=== PATIENT | female | born 1935 | race Caucasian/White ===

== ENCOUNTER 2016-11-05 06:53 | Emergency (ER) | payer MEDICARE, BC, OTHER ==
[~2016-11-05] VITALS: Ht 154.9 cm; Wt 63.5 kg
[~2016-11-05 06:53] MED LIST: ASPIR-LOW81 MG PO; ATENOLOL25 MG PO; COZAAR50 MG PO; NITROSTAT0.4 MG SL; NORCO 5-325 TA1 EACH PO
[2016-11-05] MEDS ORDERED: ATORVASTATIN CA10 MG PO (07:16)
--- NOTE | 2016-11-05 11:08 | EKG ---
[facility] [address] [facility] [place], [place] [address] Signed Normal sinus rhythm Normal ECG When compared with ECG of 05-MAY-2016 07:10, No significant change was found Confirmed by ROLDAN MCCAULEY MD ([id number]) on 11/05/2016 11:08:18 AM Electronically Signed By: ROLDAN MCCAULEY MD 11/05/16 1108 PATIENT NAME: DMITRY SAM Electrocardiogram DATE OF : 35 PHYSICIAN: ROLDAN MCCAULEY MD REPORT #: [id number] REPORT IS CONFIDENTIAL AND NOT TO BE RELEASED WITHOUT AUTHORIZATION
== END 2016-11-05 09:00 | disposition home or self-care (01) ==
LOC: ED 06:53
DX: R07.9 Chest pain, unspecified (principal); R51 Headache; Z79.899 Other long term (current) drug therapy; Z79.82 Long term (current) use of aspirin
CPT/HCPCS: 70450; 71010; 80053; 84484; 85025; 93005; 93010; 96374; 99284; J2405

== ENCOUNTER 2019-11-09 17:52 | Emergency (ER) | payer MEDICARE, BC, OTHER ==
[~2019-11-09] VITALS: Ht 154.9 cm; Wt 63.5 kg
--- OUTSIDE RECORDS SUMMARY | ~2019-11-09 | XMS | Encounter Summary ---
Demographics + + + | Address | [address] | | | [place] [address] | + + + | Home Phone | | + + + | Preferred Language | Unknown | + + + | Marital Status | | + + + | Lutheran Affiliation | 1073 | + + + | Race | White | + + + | Ethnic Group | Not or | + + + Author + + + | Author | [facility] | | | and [place] | + + + | Organization | [facility] | | | and [place] | + + + | Address | Unknown | + + + | Phone | Unavailable | + + + Support + + + + + | Name | Relationship | Address | Phone | + + + + + | Kristyndamaris Noble | ECON | [address] | | | | | [place], [place] | | | | | [address] | | + + + + + | Georgie Noble | ECON | Unknown | | + + + + + Care Team Providers + +------+ + | Care Financial Engineer Name | Role | Phone | + +------+ + | Symone Oscar MD | PCP | | + +------+ + Encounter Details +--------+ + + + + | Date | Type | Department | Care Team | Description | +--------+ + + + + | 11/24/ | Orders Only | [facility] | Arvin Bacon | | | 2019 | | NOSE AND THROAT [address] | MD Julia [address] | | | | | [address] | [address] | | | | | [place], [place] | [place] [address] | | | | | [address] | [phone] | | | | | [phone] | | | +--------+ + + + + Social History + +-------+ +--------+------+ | Tobacco Use | Types | Packs/Day | Years | Date | | | | | Used | | + +-------+ +--------+------+ | Never Smoker | | | | | + +-------+ +--------+------+ + +---+---+---+ | Smokeless Tobacco: | | | | | Never Used | | | | + +---+---+---+ + + + | Sex Assigned at | Date Recorded | | | | + + + | Not on file | | + + + documented as of this encounter Plan of Treatment Not on filedocumented as of this encounter Procedures + +--------+ + + + | Procedure Name | Priori | Date/Time | Associated Diagnosis | Comments | | | ty | | | | + +--------+ + + + | CULTURE, NOSE, AND | Routin | 11/24/2018 | | Results for this | | SENSITIVITY | e | 4:41 PM | | procedure are in the | | | | PDT | | results section. | + +--------+ + + + documented in this encounter Results Culture, Nose, and Sensitivity (11/24/2018 4:41 PM PDT) + + + + + + | Component | Value | Ref Range | Performed | Pathologist | | | | | At | Signature | + + + + + + | Special | RIGHT NARES | | REFERENCE | | | Requests | | | LAB | | | | | | [facility] | | | | | | LABORATORY | | + + + + + + | RESULT | 1+NORMAL UPPER | | REFERENCE | | | | RESPIRATORY [facility] | | LAB | | | | | | [facility] | | | | | | LABORATORY | | + + + + + + | RESULT | Testing performed at | | REFERENCE | | | | TC;[address] | | LAB | | | | Blvd;[place], [place] | | [facility] | | | | [id number]: Testing | | LABORATORY | | | | performed at [facility], [address] | | | | | | [address], | | | | | | [place] [address] | | | | + + + + + + + + | Specimen | + + | | + + + + + + + | Performing | Address | City/State/Zipcode | Phone Number | | Organization | | | | + + + + + | REFERENCE LAB | [address] | [place] | [phone] | | [facility] | [address] | [address] | | | LABORATORY | | | | + + + + + | REFERENCE LAB | [address] | [place] | | | [facility] | [place] | [address] | | | LABORATORY | | | | + + + + + documented in this encounter Visit Diagnoses Not on filedocumented in this encounter"
--- OUTSIDE RECORDS SUMMARY | ~2019-11-09 | XMS | Encounter Summary ---
Demographics + + + | Address | [address] | | | [place] [address] | + + + | Home Phone | | + + + | Preferred Language | Unknown | + + + | Marital Status | | + + + | Temple Affiliation | 1073 | + + + | Race | White | + + + | Ethnic Group | Not or | + + + Author + + + | Author | [facility] | | | and [place] | + + + | Organization | [facility] | | | and [place] | + + + | Address | Unknown | + + + | Phone | Unavailable | + + + Support + + + + + | Name | Relationship | Address | Phone | + + + + + | Kristyndamaris Noble | ECON | [address] | | | | | [place], [place] | | | | | [address] | | + + + + + | Georgie Noble | ECON | Unknown | | + + + + + Care Team Providers + +------+ + | Care Vat Skimmer Name | Role | Phone | + +------+ + | Symone Oscar MD | PCP | | + +------+ + Encounter Details +--------+ + + + + | Date | Type | Department | Care Team | Description | +--------+ + + + + | 06/02/ | Orders Only | [facility] | Ac Rahman MD | | | 2016 | | CARDIOLOGY [place] | [address] | | | | | [address] | [place] [address] | | | | | [address] | [phone] | | | | | [place], [place] | | | | | | [address] | | | | | | [phone] | | | +--------+ + + + + Social History + +-------+ +--------+------+ | Tobacco Use | Types | Packs/Day | Years | Date | | | | | Used | | + +-------+ +--------+------+ | Never Assessed | | | | | + +-------+ +--------+------+ + + + | Sex Assigned at [...] | + +--------+ + + + | NM MYOCARDIAL | Routin | 06/03/2015 | | Results for this | | PERFUSION MULT SPECT | e | 4:43 PM | | procedure are in the | | | | PDT | | results section. | + +--------+ + + + documented in this encounter Results NM Myocardial Perfusion Mult SPECT (06/03/2015 4:43 PM PDT) + + | Specimen | + + | | + + + + + | Impressions | Performed At | + + + | This is an abnormal stress test based on the ST depression that | | | became more prominent during recovery phase after Lexiscan infusion, | | | however perfusion appears to be normal with no transient ischemic | | | dilatation. Ac Rahman MD, [facility] | | + + + + + + | Narrative | Performed At | + + + | [facility] Nuclear Treadmill Stress Test With | | | Lexiscan Intervention TEST DATE: 06/03/2015 INDICATION FOR | | | TEST: 80 year old female being evaluated for coronary artery disease. | | | RISK FACTORS: hypertension, hyperlipidemia, family history, | | | stress, post menopause PROCEDURE: Gino protocol. Rest dose- 10.1 | | | mCi of Tc-99m Myoview given intravenously. Stress dose- At 02:39 | | | minutes 30.9 mCi of Tc-99m Myoview given intravenously. Injected 0.4 | | | mg IV of Lexiscan over 10 seconds at 01:50 minutes to complete stress. | | | Effective Dose Equivalent: 14.0 mSv. The predicted exercise time | | | was 02:30 minutes. Patient's Predicted Maximum HR: 140. Patient's | | | Predicted 85% Max HR: 119. REST DATA: HR: 47 bpm BP: 150 / 77. | | | Rest EKG shows sinus bradycardia with nonspecific ST abnormalities. | | | STRESS DATA: Exercise Time: 01:42 minutes, HR achieved: 116 bpm, Max | | | BP: 150 / 77. RPP: [id number]. METS: 4.60. Symptoms shortness of breath, | | | headache The test was terminated due to Lexiscan intervention for | | | shortness of breath, Walked to 82 % MPHR. Stress EKG showed 1 mm | | | planar ST depression in a diffuse pattern that became more prominent | | | during recovery phase before it normalized. GATED IMAGES: Rest | | | EDV: 88 mL Rest ESV: 24 mL Stress EDV: 85 mL Stress ESV: 18 mL. | | | EJECTION FRACTION: REST EF: 73% STRESS EF: 79%. IMAGIN. The | | | quality of the study is adequate. 2. SPECT images showed no | | | significant perfusion defect both at rest and during exercise. (SSS: | | | 0 SRS: 1 SDS: 0 TID: 0.85). 3. Gated SPECT images showed normal | | | wall motions. 4. Gated SPECT images showed normal wall thickening. | | | 5. The RV function appears normal. 6. The Stoner Treadmill Score | | | is -3. 7. Comparison of previous nuclear stress test on 08/04/2006 | | | showed similar EKG changes. | | + + + + + | Procedure Note | + + | Francisco Javier, Rad Conversion - 10/20/2018 8:44 PM [facility] | | Treadmill Stress Test With Lexiscan Intervention TEST DATE: 06/03/2015 INDICATION FOR | | TEST: 80 year old female being evaluated for coronary artery disease. RISK FACTORS: | | hypertension, hyperlipidemia, family history, stress, post menopause PROCEDURE: Gino | | protocol. Rest dose- 10.1 mCi of Tc-99m Myoview given intravenously. Stress dose- At | | 02:39 minutes 30.9 mCi of Tc-99m Myoview given intravenously. Injected 0.4 mg IV of | | Lexiscan over 10 seconds at 01:50 minutes to complete stress. Effective Dose | | Equivalent: 14.0 mSv. The predicted exercise time was 02:30 minutes. Patient's Predicted | | Maximum HR: 140. Patient's Predicted 85% Max HR: 119. REST DATA: HR: 47 bpm BP: 150 / | | 77. Rest EKG shows sinus bradycardia with nonspecific ST abnormalities. STRESS DATA: | | Exercise Time: 01:42 minutes, HR achieved: 116 bpm, Max BP: 150 / 77. RPP: 51709. METS: | | 4.60. Symptoms shortness of breath, headache The test was terminated due to Lexiscan | | intervention for shortness of breath, Walked to 82 % MPHR. Stress EKG showed 1 mm | | planar ST depression in a diffuse pattern that became more prominent during recovery | | phase before it normalized. GATED IMAGES: Rest EDV: 88 mL Rest ESV: 24 mL Stress EDV: | | 85 mL Stress ESV: 18 mL. EJECTION FRACTION: REST EF: 73% STRESS EF: 79%. IMAGIN. The | | quality of the study is adequate.2. SPECT images showed no significant perfusion | | defect both at rest and during exercise. (SSS: 0 SRS: 1 SDS: 0 TID: 0.85).3. Gated | | SPECT images showed normal wall motions.4. Gated SPECT images showed normal wall | | thickening.5. The RV function appears normal.6. The Stoner Treadmill Score is -3.7. | | Comparison of previous nuclear stress test on 08/04/2006 showed similar EKG changes. | | IMPRESSION: This is an abnormal stress test based on the ST depression that became more | | prominent during recovery phase after Lexiscan infusion, however perfusion appears to be | | normal with no transient ischemic dilatation. Ac Rahman MD, [facility] Electronically | | signed by Ac Rahman MD on 06/05/2015 5:55 PM | |2. SPECT images showed no significant perfusion defect both at rest and during exercise. (SSS: 0 SRS: 1 SDS: 0 TID: 0.85). | |3. Gated SPECT images showed normal wall motions. | |4. Gated SPECT images showed normal wall thickening. | |5. The RV function appears normal. | |6. The Stoner Treadmill Score is -3. | |7. Comparison of previous nuclear stress test on 08/04/2006 showed similar EKG changes. | | | | | |IMPRESSION: | |This is an abnormal stress test based on the ST depression that became more prominent durin g recovery phase after Lexiscan infusion, however perfusion appears to be normal with no tra nsient ischemic dilatation. | | | | | |Ac Rahman MD, FACC | | | | | + + documented in this encounter Visit Diagnoses Not on filedocumented in this encounter"
--- OUTSIDE RECORDS SUMMARY | ~2019-11-09 | XMS | Encounter Summary ---
Demographics + + + | Address | [address] | | | [place] [address] | + + + | Home Phone | | + + + | Preferred Language | Unknown | + + + | Marital Status | | + + + | Moravian Affiliation | 1073 | + + + | Race | White | + + + | Ethnic Group | Not or | + + + Author + + + | Author | [facility] | | | and [place] | + + + | Organization | [facility] | | | and [place] | + + + | Address | Unknown | + + + | Phone | Unavailable | + + + Support + + + + + | Name | Relationship | Address | Phone | + + + + + | Kristyndamaris Noble | ECON | [address] | | | | | [place], [place] | | | | | [address] | | + + + + + | Georgie Noble | ECON | Unknown | | + + + + + Care Team Providers + +------+ + | Care Livestock Producer Name | Role | Phone | + +------+ + PCP | Unavailable | + +------+ + Encounter Details +--------+ + + + + | Date | Type | Department | Care Team | Description | +--------+ + + + + | 04/01/ | Hospital | [facility] | Conversion | CHEST PAIN NOS | | 2005 - | Encounter | [facility] | Transaction, | | | | | CLINICAL DECISION | Provider Unknown | | | 04/03/ | | [address] | | | | 2005 | | [place], [place] | (Fax) | | | | | [address] | | | | | | [phone] | | | +--------+ + + + [...] Not on filedocumented as of this encounter Visit Diagnoses + + | Diagnosis | + + | Chest pain, unspecified | + + documented in this encounter"
--- OUTSIDE RECORDS SUMMARY | ~2019-11-09 | XMS | Encounter Summary ---
Demographics + + + | Address | [address] | | | [place] [address] | + + + | Home Phone | | + + + | Preferred Language | Unknown | + + + | Marital Status | | + + + | Sikhism Affiliation | 1073 | + + + | Race | White | + + + | Ethnic Group | Not or | + + + Author + + + | Author | [facility] | | | and [place] | + + + | Organization | [facility] | | | and [place] | + + + | Address | Unknown | + + + | Phone | Unavailable | + + + Support + + + + + | Name | Relationship | Address | Phone | + + + + + | Kristyndamaris Noble | ECON | [address] | | | | | [place], [place] | | | | | [address] | | + + + + + | Georgie Noble | ECON | Unknown | | + + + + + Care Team Providers + +------+ + | Care End User Support Specialist Name | Role | Phone | + +------+ + PCP | Unavailable | + +------+ + Encounter Details +--------+ + + + + | Date | Type | Department | Care Team | Description | +--------+ + + + + | 07/14/ | Emergency | [facility] | Shea Christopher, | Unspecified Chest | | 2006 | | MEDICAL [facility]ENTER | [address] | Pain | | | | EMERGENCY CENTER | [place] [address] | | | | | [address] | [phone] | | | | | [place], [place] | | | | | | [address] | | | | | | [phone] | | | +--------+ + + + [...]
--- OUTSIDE RECORDS SUMMARY | ~2019-11-09 | XMS | Encounter Summary ---
Demographics + + + | Address | [address] | | | [place] [address] | + + + | Home Phone | | + + + | Preferred Language | Unknown | + + + | Marital Status | | + + + | Islam Affiliation | 1073 | + + + | Race | White | + + + | Ethnic Group | Not or | + + + Author + + + | Author | [facility] | | | and [place] | + + + | Organization | [facility] | | | and [place] | + + + | Address | Unknown | + + + | Phone | Unavailable | + + + Support + + + + + | Name | Relationship | Address | Phone | + + + + + | Susi Real | ECON | [address] | | | | | [place], [place] | | | | | [address] | | + + + + + | Georgie Noble | ECON | Unknown | | + + + + + Care Team Providers + +------+ + | Care Global Security Architect Name | Role | Phone | + +------+ + | Symone Oscar MD | PCP | | + +------+ + Reason for Visit +--------+ + | Reason | Comments | +--------+ + | 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 | +--------+ + Encounter Details +--------+---------+ + + + | Date | Type | Department | Care Team | Description | +--------+---------+ + + + | 11/24/ | Office | [facility] | Niecy Bacon | Chronic maxillary | | 2019 | Visit | NOSE AND THROAT [address] | MD Julia [address] | sinusitis (Primary | | | | [address] | [address] | Dx); Allergic | | | | [place], [place] | [place] [address] | rhinitis, | | | | [address] | [phone] | unspecified | | | | [phone] | | seasonality, | | | | | | unspecified trigger; | | | | | | History of nasal | | | | | | polyposis | +--------+---------+ + + + Social History + +-------+ [...] + + documented as of this encounter Last Filed Vital Signs + +---------+ + + | Vital Sign | Reading | Time Taken | Comments | + +---------+ + + | Blood Pressure | - | - | | + +---------+ + + | Pulse | 55 | 11/24/2018 1:45 PM | | | | | PDT | | + +---------+ + + | Temperature | - | - | | + +---------+ + + | Respiratory Rate | - | - | | + +---------+ + + | Oxygen Saturation | 97% | 11/24/2018 1:45 PM | | | | | PDT | | + +---------+ + + | Inhaled Oxygen | - | - | | | Concentration | | | | + +---------+ + + | Weight | - | - | | + +---------+ + + | Height | - | - | | + +---------+ + + | Body Mass Index | - | - | | + +---------+ + + documented in this encounter Patient Instructions Patient Instructions Anca Hopper, Pulp Mixer - 11/24/2018 1:45 PM PDTThis medicat ion is over the counter: This medication is over the counter: documented in this encounter Progress Notes Niecy Bacon MD - 11/24/2018 1:45 PM PDT Subjective: Constance is a 83 y.o. female who I was asked to see in consultation for evaluation of chron ic sinusitis and nasal poylps. She reports chronic sinus problems for the past 7 years. Her symptoms include right-sided nasal congestion, postnasal drainage, coughing up sputum. The re has not been a history of clear rhinorrhea, epistaxis. There has not been a history of ch ronic otitis media or pharyngotonsillitis. Prior antibiotics have including Amoxicillin. She reports 3 or 4 courses of oral antibiotics in the past year. Other medications have include d Flonase intranasal spray twice daily, which does help. She is not taking an oral antihisti mine. She reports she does have seasonal allergies. She has not had allergy testing done. S he reports a constant "hissing" sound which comes with coughing up sputum. Patient states frenanda soliz had left-sided nasal polyps [place] [address] Escalante in [place], which improved h er symptoms at that time. She also reports right-sided nasal polyps, which she reports were not extensive enough to remove. She states she has an implant in the left ear, by Dr. Epi weston approximately 20 years ago. Patient's medications, allergies, past medical, surgical, social and family histories were obtained and reviewed as appropriate. History: Past Medical History: Diagnosis Date Abnormal stress test mildly however with normal perfusion pattern CAD (coronary artery disease) stenting of left anterior descending artery HTN (hypertension) Hyperlipidemia Past Surgical History: Procedure Laterality Date CARDIAC CATHERIZATION CORONARY ANGIOPLASTY WITH STENT PLACEMENT TUBAL LIGATION Bilateral 1958 Family History Problem Relation Age of Onset Heart attack Father Hx of CHF Other (see comment) Mother CVA Social History Socioeconomic History Marital status: Spouse name: Not on file Number of children: Not on file Years of education: trade ada. Highest education level: Not on file Tobacco Use Smoking status: Never Smoker Smokeless tobacco: Never Used Allergies: Allergies Allergen Reactions Yann Inhibitors Cough Enalapril Cough Review of Systems Constitutional: negative Respiratory: positive for sputum, stridor and wheezing Cardiovascular: negative Gastrointestinal: negative Hematologic/lymphatic: negative Musculoskeletal:positive for arthralgias, muscle weakness and stiff joints Neurological: positive for gait problems Behavioral/Psych: negative Endocrine: positive for diabetic symptoms including blurry vision Allergic/Immunologic: negative Objective: Pulse 55 | SpO2 97% General: healthy, alert, appears stated age, not in distress Head and Face: facial movement was normal and symmetrical, nontender External Ears: normal pinnae shape and position Ext. Aud. Canal: Right:patent Left: patent Tympanic Mem: Right: normal landmarks and mobility Left: normal landmarks and mobility Nose: Nares normal. Septum midline. Mucosa normal. No drainage or sinus tenderness. Oropharynx: lips, dentition and gingiva within normal for age Tonsils: absent bilaterally Post. Pharynx: normal mucosa Neck: no asymmetry, masses, or scars, supple without significant adenopathy, trachea midl ine Thyroid: Normal Heart: regular rate and rhythm Lungs: Non-labored breathing Psych/Neuro: oriented, normal mood, grossly non-focal NASAL ENDOSCOPY Pre-procedure diagnosis: Nasal polyps, chronic sinusitis Post-procedure diagnosis: Same Procedure: Diagnostic nasal endoscopy. Under a separate identifiable procedure, diagnostic nasal endoscopy was performed. Verbal consent obtained. The risks, benefits, alternatives, and complications associated with the procedure were discussed with the patient. Topical 4% lidocaine with Kendell-Synephrine was raul lied to the nasal cavities. After the medication took effect, a 0 endoscope was introduce d into the left nasal cavity. A three pass technique was used to examine the nasal cavity. The nasopharynx and nasal cavity were free of mass, polyp, or lesions. The left middle meatu s was free of purulent debris or polyps. Scope was removed. The right nasal cavity was exa mined in the exact same fashion. There was no evidence of mass, polyp, or lesion. The right middle meatus showed areas of mucoid to mucopurulent drainage. A culture was performed of this. No polyps were identified.. The endoscope was removed. Patient tolerated the proced ure well. } Assessment: 1. Chronic maxillary sinusitis Culture, Nose, and Sensitivity 2. Allergic rhinitis, unspecified seasonality, unspecified trigger 3. History of nasal polyposis . Plan: 1. I have reviewed the physical examination findings including the imaging results with th e patient. There is no evidence of polyps or masses today. She does appear to have thick muc ous to mucopurulent drainage on the right side today. Culture of the right sinus obtained. I recommend she continue using Flonase twice daily. I recommend she add saline rinses and add ing Mucinex daily. We will call her with the culture results. 2. The risks and benefits of my recommendations, as well as other treatment options were di scussed with the patient today. 3. Return for follow-up after culture results. Anca Harper CMA, am personally taking down the note in the presence of Nga Shin. NIECY BACON MD, personally performed the services described in this documentation, as scribed by Anca Hopper MA in my presence, and it is accurate. documented in this encounter Plan of Treatment + + +--------+ + + | Name | Type | Priori | Associated Diagnoses | Order Schedule | | | | ty | | | + + +--------+ + + | Culture, Nose, and | Microbiolog | Routin | Chronic maxillary | Ordered: 11/24/2018 | | Sensitivity | y | e | sinusitis | | + + +--------+ + + documented as of this encounter Visit Diagnoses + + | Diagnosis | + + | Chronic maxillary sinusitis - Primary | + + | Allergic rhinitis, unspecified seasonality, unspecified trigger | + + | History of nasal polyposis | + + documented in this encounter
--- OUTSIDE RECORDS SUMMARY | ~2019-11-09 | XMS | Encounter Summary ---
Demographics + + + | Address | [address] | | | [place] [address] | + + + | Home Phone | | + + + | Preferred Language | Unknown | + + + | Marital Status | | + + + | Anabaptist Affiliation | 1073 | + + + | Race | White | + + + | Ethnic Group | Not or | + + + Author + + + | Author | [facility] | | | and [place] | + + + | Organization | [facility] | | | and [place] | + + + | Address | Unknown | + + + | Phone | Unavailable | + + + Support + + + + + | Name | Relationship | Address | Phone | + + + + + | Kristyndamaris Noble | ECON | [address] | | | | | [place], [place] | | | | | [address] | | + + + + + | Georgie Noble | ECON | Unknown | | + + + + + Care Team Providers + +------+ + | Care Welder Experimental Name | Role | Phone | + +------+ + | Symone Oscar MD | PCP | | + +------+ + Encounter Details +--------+ + + + + | Date | Type | Department | Care Team | Description | +--------+ + + + + | 12/14/ | Orders Only | [facility] | Conversion | | | 2013 | | CONVERSION DEP 888 | Transaction, | | | | | [facility] | Provider Unknown | | | | | [place] | [phone] | | | | | [address] | | | | | | [phone] | | | +--------+ + + + [...] filedocumented as of this encounter Visit Diagnoses Not on filedocumented in this encounter"
--- OUTSIDE RECORDS SUMMARY | ~2019-11-09 | XMS | Encounter Summary ---
Demographics + + + | Address | [address] | | | [place] [address] | + + + | Home Phone | | + + + | Preferred Language | Unknown | + + + | Marital Status | | + + + | Episcopal Affiliation | 1073 | + + + | Race | White | + + + | Ethnic Group | Not or | + + + Author + + + | Author | [facility] | | | and [place] | + + + | Organization | [facility] | | | and [place] | + + + | Address | Unknown | + + + | Phone | Unavailable | + + + Support + + + + + | Name | Relationship | Address | Phone | + + + + + | Kristyndamaris Noble | ECON | [address] | | | | | [place], [place] | | | | | [address] | | + + + + + | Georgie Noble | ECON | Unknown | | + + + + + Care Team Providers + +------+ + | Care Direct Marketing Coordinator Name | Role | Phone | + +------+ + | Symone Oscar MD | PCP | | + +------+ + Encounter Details +--------+ + + + + | Date | Type | Department | Care Team | Description | +--------+ + + + + | 08/25/ | Orders Only | [facility] | Conversion | | | 2015 | | CONVERSION DEP 888 | Transaction, | | | | | [facility] | Provider Unknown | | | | | [place] | [phone] | | | | | [address] | | | | | | [phone] | | | +--------+ + + + [...]
--- OUTSIDE RECORDS SUMMARY | ~2019-11-09 | XMS | Encounter Summary ---
Demographics + + + | Address | [address] | | | [place] [address] | + + + | Home Phone | | + + + | Preferred Language | Unknown | + + + | Marital Status | | + + + | Congregation Affiliation | 1073 | + + + | Race | White | + + + | Ethnic Group | Not or | + + + Author + + + | Author | [facility] | | | and [place] | + + + | Organization | [facility] | | | and [place] | + + + | Address | Unknown | + + + | Phone | Unavailable | + + + Support + + + + + | Name | Relationship | Address | Phone | + + + + + | Susi Paweljairohanna | ECON | [address] | | | | | [place], [place] | | | | | [address] | | + + + + + | Georgie Noble | ECON | Unknown | | + + + + + Care Team Providers + +------+ + | Care Mid Level Game Designer Name | Role | Phone | + +------+ + | Symone Oscar MD | PCP | | + +------+ + Reason for Visit +--------+--------+ + | Reason | Onset | Comments | | | Date | | +--------+--------+ + | Other | 08/02/ | | | | 2019 | | +--------+--------+ + Encounter Details +--------+ + + + + | Date | Type | Department | Care Team | Description | +--------+ + + + + | 08/02/ | Telephone | [facility] | Ac Rahman MD | Other | | 2019 | | CARDIOLOGY POTH | [address] | | | | | [address] | [place] [address] | | | | | [place], [place] | [phone] | | | | | [address] | | | | | | [phone] | | | +--------+ + + + [...] + + documented as of this encounter Miscellaneous Notes Telephone Encounter - Mervin Garcia, Chief Underwriter - 08/03/2019 5:13 PM PDTPt mendez d and left a voicemail message for Mimi to call to schedule an appointment because she had a heart episode last night. Mimi forwarded the message to me to address with Dr. Rahman. I called pt and she stated last night about 5pm she had chest pressure, pain in the neck an d back, high b/p of 190/99 w/ hr 68 and nauseated. She did today take 2 nitro's about 1 hour apart and it did help a little but she described her nitro as crumply. She stated if she allen s this issue tonight she will go to [facility] since she lives in [place]. Per Dr. Rahman schedule her next week but if continues she needs to go to the hospital. I called pt back and advised her of this and she stated her daughter will be driving her up to [facility] in about an hour as she doesn't think the hospital there has any good providers. I advised Dr. Rahman of this. documented in this encounter Plan of Treatment Not on filedocumented as of this encounter Visit Diagnoses Not on filedocumented in this encounter"
--- OUTSIDE RECORDS SUMMARY | ~2019-11-09 | XMS | Clinical Summary ---
Demographics + + + | Address | [address] | | | [place] [address] | + + + | Home Phone | | + + + | Preferred Language | Unknown | + + + | Marital Status | | + + + | Nondenominational Affiliation | 1073 | + + + | Race | White | + + + | Ethnic Group | Not or | + + + Author + + + | Author | [facility] | | | and [place] | + + + | Organization | [facility] | | | and [place] | + + + | Address | Unknown | + + + | Phone | Unavailable | + + + Support + + + + + | Name | Relationship | Address | Phone | + + + + + | Kristyndamaris Noble | ECON | [address] | | | | | [place], [place] | | | | | [address] | | + + + + + | Georgie Noble | ECON | Unknown | | + + + + + Care Team Providers + +------+ + | Care Warehouse Checker Name | Role | Phone | + +------+ + | Symone Oscar MD | PCP | | + +------+ + Allergies + + + + + + | Active Allergy | Reactions | Severity | Noted | Comments | | | | | Date | | + + + + + + | Yann Inhibitors | Cough | Low | 12/15/19 | | | | | | 14 | | + + + + + + | Enalapril | Cough | Low | 12/15/19 | | | | | | 14 | | + + + + + + Medications + + + +---------+------+------+-------+ | Medication | Sig | Dispensed | Refills | Star | End | Statu | | | | | | t | Date | s | | | | | | Date | | | + + + +---------+------+------+-------+ | atenolol | Take 25 mg by mouth. | | 0 | 10/1 | | Activ | | (TENORMIN) 25 mg | 1 am and 1-/ pm | | | 6 | | e | | tablet | | | | 14 | | | + + + +---------+------+------+-------+ | atorvaSTATin | Take 5 mg by mouth | | 0 | 11/29 | | Activ | | (LIPITOR) 10 mg | twice a week. | | | 08/18 | | e | | tablet | | | | 14 | | | + + + +---------+------+------+-------+ | escitalopram | Take 5 mg by mouth | | 0 | 04/29 | | Activ | | (LEXAPRO) 10 mg | nightly. | | | 08/18 | | e | | tablet | | | | 16 | | | + + + +---------+------+------+-------+ | aspirin 81 MG EC | Take 81 mg by mouth | | 0 | 07/31 | | Activ | | tablet | daily with | | | 09/17 | | e | | | breakfast. | | | 16 | | | + + + +---------+------+------+-------+ | amLODIPine | Take 1 tablet by | 30 | 0 | 06/0 | | Activ | | (NORVASC) 5 mg | mouth Daily. At the | tablet | | 6/20 | | e | | tablet | time reccomendedc by | | | 20 | | | | | Dr. pearson | | | | | | + + + +---------+------+------+-------+ | chlorthalidone 25 | Take 1 tablet by | 30 | 1 | 06/0 | | Activ | | mg tablet | mouth Daily. 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 | + + + +---+ | Hyperlipidemia | | + +---+ | Abnormal stress test | | + +---+ + + | Overview: mildly however with normal perfusion pattern | + + Family History + + +------+ + | Medical History | Relation | Name | Comments | + + +------+ + | Heart attack | Father | | Hx of CHF | + + +------+ + | Other (see comment) | Mother | | CVA | + + +------+ + + +------+ + + | Relation | Name | Status | Comments | + +------+ + + | Father | | | | | | | (Age | | | | | 93) | | + +------+ + + | Father | | | | + +------+ + + | Mother | | | | + +------+ + + | Mother | | | | + +------+ + + Social History + +-------+ +--------+------+ [...] on file | | + + + Last Filed Vital Signs + + + + + | Vital Sign | Reading | Time Taken | Comments | + + + + + | Blood Pressure | 156/74 | 08/04/2019 2:04 PM | | | | | PDT | | + + + + + | Pulse | 73 | 08/04/2019 2:04 PM | | | | | PDT | | + + + + + | Temperature | 36.9 C (98.4 F) | 08/04/2019 2:04 PM | | | | | PDT | | + + + + + | Respiratory Rate | 18 | 08/04/2019 2:04 PM | | | | | PDT | | + + + + + | Oxygen Saturation | 96% | 08/04/2019 12:09 PM | | | | | PDT | | + + + + + | Inhaled Oxygen | - | - | | | Concentration | | | | + + + + + | Weight | 63.1 kg (139 lb 1.8 | 08/04/2019 3:44 AM | | | | oz) | PDT | | + + + + + | Height | 154.9 cm (5' 1") | 08/03/2019 6:44 PM | | | | | PDT | | + + + + + | Body Mass Index | 26.28 | 08/03/2019 6:44 PM | | | | | PDT | | + + + + + Plan of Treatment + + + + + | Health Maintenance | Due Date | Last | Comments | | | | Done | | + + + + + | Vaccine: | | | | | Dtap/Tdap/Td (1 - | 5 | | | | Tdap) | | | | + + + + + | Vaccine: | | | | | Pneumococcal 65+ (1 | 1 | | | | of 1 - PPSV23) | | | | + + + + + | Vaccine: Zoster (2 | | 02/07/20 | | | of 3) | 6 | 15 | | + + + + + | Adult Annual | | | | | Wellness Visit | 9 | | | + + + + + | Vaccine: Influenza | | 01/04/20 | | | (#1) | 0 | 19, | | | | | 01/18/20 | | | | | 18, | | | | | 12/24/19 | | | | | 17, | | | | | Addition | | | | | al | | | | | history | | | | | exists | | + + + + + | Hemoglobin A1c | | 08/03/19 | | | Screening | 1 | 20 | | + + + + + | Med Mgmt: Cr | | 08/04/19 | | | | 1 | 20, | | | | | 08/03/19 | | | | | 20, | | | | | 08/26/19 | | | | | 16 | | + + + + + | Med Mgmt: K | | 08/04/19 | | | | 1 | 20, | | | | | 08/03/19 | | | | | 20, | | | | | 08/26/19 | | | | | 16 | | + + + + + | Med Mgmt: Na | | 08/04/19 | | | | 1 | 20, | | | | | 08/03/19 | | | | | 20, | | | | | 08/26/19 | | | | | 16 | | + + + + + | Medication | | 08/04/19 | | | Management | 1 | 20 | | + + + + + Results Not on filefrom Last 3 Months Insurance + +--------+ +--------+ +---------+--------+ | Payer | Benefi | Subscriber | Effect | Phone | Address | Type | | | t Plan | ID | hernando | | | | | | / | | Dates | | | | | | Group | | | | | | + +--------+ +--------+ +---------+--------+ | MEDICARE | MEDICA | [id number] | 03/01/19 | [phone] | | Medica | | | RE | | 01-Pre | 5 | | re | | | PART A | | sent | | | | | | AND B | | | | | | + +--------+ +--------+ +---------+--------+ | PREMERA | PREMER | [id number] | 03/01/19 | [phone] | | Indemn | | | A MDCR | 3 | 11-Pre | 0 | | ity | | | SUPPL | | sent | | | | + +--------+ +--------+ +---------+--------+ | [place] | MEDICA | [id number] | 10/06/19 | [phone] | | Medica | | | ID | | 19-Pre | 2 | | id | | | [place] | | sent | | | | + +--------+ +--------+ +---------+--------+ + +--------+ +--------+ + + | Guarantor Name | Accoun | Relation to | Date | Phone | Billing Address | | | t Type | Patient | of | | | | | | | | | | + +--------+ +--------+ + + | Constance Noble | Person | Self | [birth year] | [address] | | [place] | [place] | | 1936 | [phone] | [place] | | | [place] | | | 2 (Home) | [address] | + +--------+ +--------+ + + | Constance Noble | Person | Self | | | [address] | | [place] | [place] | | 1936 | [phone] | [place] | | | [place] | | | [address] (Home) | [address] | + +--------+ +--------+ + + Advance Directives + + + + + | Type | Date Recorded | Patient | Explanation | | | | Crna | | + + + + + | Power of | | | | | Construction Project Coordinator | | | | + + + + + | Advance | 08/03/2019 7:18 | | | | Directive | PM | | | + + + + + + + + + + | Code Status | Date | Date | Comments | | | Activated | Inactivated | | + + + + + | Full Code | 08/03/2019 | 08/04/2019 | | | | 10:22 PM | 7:02 PM | | + + + + +
--- OUTSIDE RECORDS SUMMARY | ~2019-11-09 | XMS | Encounter Summary ---
Demographics + + + | Address | [address] | | | [place] [address] | + + + | Home Phone | | + + + | Preferred Language | Unknown | + + + | Marital Status | | + + + | Uatsdin Affiliation | 1073 | + + + | Race | White | + + + | Ethnic Group | Not or | + + + Author + + + | Author | [facility] | | | and [place] | + + + | Organization | [facility] | | | and [place] | + + + | Address | Unknown | + + + | Phone | Unavailable | + + + Support + + + + + | Name | Relationship | Address | Phone | + + + + + | Kristyndamaris Noble | ECON | [address] | | | | | [place], [place] | | | | | [address] | | + + + + + | Georgie Noble | ECON | Unknown | | + + + + + Care Team Providers + +------+ + | Care Front End Loader Driver Name | Role | Phone | + +------+ + | Symone Oscar MD | PCP | | + +------+ + Encounter Details +--------+ + + + + | Date | Type | Department | Care Team | Description | +--------+ + + + + | 05/14/ | Orders Only | [facility] | Conversion | | | 2015 | | CONVERSION DEP 888 | Transaction, | | | | | [facility] | Provider Unknown | | | | | [place] | [phone] | | | | | [address] | | | | | | [phone] | | | +--------+ + + + [...]
--- OUTSIDE RECORDS SUMMARY | ~2019-11-09 | XMS | Encounter Summary ---
Demographics + + + | Address | [address] | | | [place] [address] | + + + | Home Phone | | + + + | Preferred Language | Unknown | + + + | Marital Status | | + + + | Pentecostalism Affiliation | [id number] | + + + | Race | White | + + + | Ethnic Group | Not or | + + + Author + + + | Author | [facility] | | | and [place] | + + + | Organization | [facility] | | | and [place] | + + + | Address | Unknown | + + + | Phone | Unavailable | + + + Support + + + + + | Name | Relationship | Address | Phone | + + + + + | Kristyndamaris Noble | ECON | [address] | | | | | [place], [place] | | | | | [address] | | + + + + + | Georgie Noble | ECON | Unknown | | + + + + + Care Team Providers + +------+ + | Care Speech Teacher Name | Role | Phone | + +------+ + PCP | Unavailable | + +------+ + Encounter Details +--------+ + + + + | Date | Type | Department | Care Team | Description | +--------+ + + + + | 08/25/ | Hospital | [facility] | Conversion | Abnormal stress | | 2016 | Encounter | [facility] | Transaction, | test; Coronary | | | | CLINICAL DECISION | Provider Unknown | artery disease | | | | [address] | [phone] | involving big sandy | | | | [place], [place] | | coronary artery of | | | | [address] | Ac Rahman MD | big sandy heart with | | | | [phone] | [address] | angina pectoris with | | | | | [place] [address] | documented spasm | | | | | [phone] | ([facility]) | | | | | | | +--------+ + + + [...] this encounter Last Filed Vital Signs + + + + + | Vital Sign | Reading | Time Taken | Comments | + + + + + | Blood Pressure | 136/65 | 08/26/2015 6:47 PM | | | | | PDT | | + + + + + | Pulse | 50 | 08/26/2015 6:47 PM | | | | | PDT | | + + + + + | Temperature | 36.7 C (98.1 F) | 08/26/2015 6:47 PM | | | | | PDT | | + + + + + | Respiratory Rate | 16 | 08/26/2015 6:47 PM | | | | | PDT | | + + + + + | Oxygen Saturation | - | - | | + + + + + | Inhaled Oxygen | - | - | | | Concentration | | | | + + + + + | Weight | 63.5 kg (140 lb) | 08/26/2015 6:47 PM | | | | | PDT | | + + + + + | Height | 152.4 cm (5') | 08/26/2015 6:47 PM | | | | | PDT | | + + + + + | Body Mass Index | 27.34 | 08/26/2015 6:47 PM | | | | | PDT | | + + + + + documented in this encounter Medications at Time of Discharge + + + +---------+ + + | Medication | Sig | Dispensed | Refills | Start | End Date | | | | | | Date | | + + + +---------+ + + | aspirin 81 MG EC | Take 81 mg by mouth | | 0 | 08/26/19 | | | tablet | daily with | | | 16 | | | | breakfast. | | | | | + + + +---------+ + + | atenolol | Take 25 mg by mouth. | | 0 | 12/15/19 | | | (TENORMIN) 25 mg | 1 am and 1-03/02 pm | | | 14 | | | tablet | | | | | | + + + +---------+ + + | atorvaSTATin | Take 5 mg by mouth | | 0 | 12/15/19 | | | (LIPITOR) 10 mg | twice a week. | | | 14 | | | tablet | | | | | | + + + +---------+ + + | escitalopram | Take 5 mg by mouth | | 0 | 05/15/19 | | | (LEXAPRO) 10 mg | nightly. | | | 16 | | | tablet | | | | | | + + + +---------+ + + | losartan (COZAAR) | Take 100 mg by mouth | | 0 | 12/15/19 | | | 100 MG tablet | daily. | | | 14 | 0 | + + + +---------+ + + documented as of this encounter Progress Notes Conversion Transaction, Provider Unknown - 08/26/2015 7:01 PM PDTFormatting of this note m ight be different from the original. Nurse Progress Note by Selena Ding RN at 08/26/151900 Author: Selena Ding RN Service: (none) Author Type: Registered Nurse Filed: 08/26/151901 Date of Service: 08/26/151900 Status: Signed Clerical Secretary: Selena Ding RN (Registered Nurse) Patient discharged off unit via wheelchair to private vehicle with family. Discussed all d ischarge and prescription information with patient. Patient verbalized an understanding of all discharge and prescription information. All personal belongings with patient at time of discharge. TELE notified. Selean Ding RN onver lachelle Transaction, Provider Unknown - 08/26/2015 5:13 PM PDT Progress Notes by Edith Mahmood RPH at 08/26/151712 Author: Edith Mahmood RPH Service: (none) Author Type: Pharmacist Filed: 08/26/151712 Date of Service: 08/26/151712 Status: Signed Clerical Secretary: Edith Mahmood RPH (Pharmacist) Renal Dosing Monitoring: Constance Noble 80 y.o. female Pharmacy dosing for renal function per Dr. Rahman Crcl~41.9ml/min Plan per protocol: Medication / Dose: no medications need renal adjustments at this time. Pharmacy will continue monitoring patient for appropriate dosing per renal function. 08/26/2015 5:11 PM Pharmacist: Edith Mahmood docume nted in this encounter H&P Notes Ac Rahman - 08/26/2015 1:06 PM PDTFormatting of this note might be different from the o riginal. H&P by Ac Rahman MD at 08/26/15 1306 Author: Ac Rahman MD Service: Cardiology Author Type: Physician Filed: 08/26/15 1303 Date of Service: 08/26/151305 Status: Signed Clerical Secretary: Ac Rahman MD (Physician) [facility] Service: Cardiology Pre-Operative History & Physical Interval Update Ms. Constance Noble presented for the prescheduled cardiac catheterization. For detail s regarding the presentation kindly refer to my following notes. Ac Rahman MD 08/26/2015 1:06 PM *CORE MEASURES REMINDER: If the patient has a known or suspected infection prior to surger y, please add diagnosis to the problem list (consider: Infection 136.9). Date of visit: 08/22/2015 Primary Care Physician: SYED VARELA CHIEF COMPLAINT: Chief Complaint Patient presents with Results Nuc-06/03/15 Coronary Artery Disease HISTORY OF PRESENT ILLNESS: Mena is here for follow-up on her chest pain and stress test. She tells me that she con tinues to have occasional discomfort in the chest but she has restricted her activities to t he extent that she did not need any nitroglycerin for almost a month now. She tells me whe n she feels her chest pain, she adjusted down and relax. Typically working in the yard may trigger her chest discomfort. She may have mild shortness of breath with it as well. Sh e has not had any presyncope or syncope. She underwent evaluation with stress test and her e to discuss the result. Past medical history, SH, FH, and medications were reviewed in the chart. Medications: Encounter Medications Outpatient Encounter Prescriptions as of 08/22/2015 Medication Sig Dispense Refill atenolol (TENORMIN) 25 MG tablet Take 25 mg by mouth. 1 am and 1-1/2 pm atorvastatin (LIPITOR) 10 MG tablet Take 5 mg by mouth nightly. escitalopram (LEXAPRO) 10 MG tablet Take 10 mg by mouth daily. losartan (COZAAR) 100 MG tablet Take 100 mg by mouth daily. nitroGLYCERIN (NITROSTAT) 0.[address] 1 tablet under the tongue every 5 (five) minutes as needed for Chest pain. 25 tablet 6 No facility-administered encounter medications on file as of 08/22/2015. Allergies Allergies Allergen Reactions Aspirin Other (See Comments) In high doses cause bruising. Yann Inhibitors Cough Enalapril Cough Objective REVIEW OF SYSTEMS: Constitutional: Negative for fatigue. No fever, chills, and rigors. No report of weight c hange. HEENT: Negative for nosebleeds, ear discharge, nasal congestion or soar throat. Eyes: Negative for visual disturbance, redness, or secretion. Respiratory: Negative for cough, sputum production, hemoptysis, wheezing. Negative for ex ertional shortness of breath. Cardiovascular: Negative for palpitations and no syncope. Negative for orthopnea. Posit hernando chest pain or tightness. No LE edema. Gastrointestinal: Negative for nausea, vomiting, diarrhea, abdominal pain and blood in stoo l. Endocrine: Genitourinary: Negative for dysuria or hematuria. Musculoskeletal: Negative for myalgias. Positive for back pain and arthralgias. Skin: Negative for rash. Neurological: Negative for dizziness. No numbness. No recent falls. No slurred speech or am aurosis fugax. Negative for poor balance Hematological: No significant bruising. Psychiatric/Behavioral: No depression or anxiety. PHYSICAL EXAM Vital Signs: BP 132/72 mmHg | Pulse 60 | Resp 18 | Ht 1.575 m (5' 2") | Wt 63.957 kg (141 lb) | BMI 25.7 8 kg/m2 | SpO2 97% GENERAL APPEARANCE: Alert, oriented, cooperative, no distress, appears stated age. HEENT: No xanthelasmas. Extraocular movements were intact. No jaundice. Pupiles round and reactive. NECK: No JVD, lymphadenopathy. Trachea is at midline. Thyroid is not palpable. Carotid up strokes normal. No carotid bruit heard. CARDIAC: Regular rhythm and rate. There is normal S1 and S2. No galop. No murmur. Pedal p ulses intact. CHEST: Normal bilateral symmetrical chest excursion. Good bilateral air entry with no crack les or wheezing. No evidence of dullness. ABDOMEN: Soft and lax. No tenderness or guarding. No palpable organs. Active bowel sounds . No pulsatile mass felt. EXTREMITIES: No lower extremities edema. Occasional varicose veins seen. NEURO: Alert and oriented times three with no focal deficit. Cranial nerves are grossly n ormal. SKIN: Warm and dry. No rash. Psych: Normal affect and mood. DATA No results found for: NA, K, CO2, BUN, CREATININE, GLUCOSE, CALCIUM, MG No results found for: WBC, HGB, HCT, MCV, PLT No results found for: CHOL, TRIG, LDL, GLUF, HGBA1C EKG from May 15, 2015 which showed normal sinus rhythm with heart rate of 50 bpm [address] abnormalities. Nuclear Treadmill Stress Test With Lexiscan Intervention TEST DATE: 06/03/2015 INDICATION FOR TEST: 80 year old female being evaluated for coronary artery disease. RISK FACTORS: hypertension, hyperlipidemia, family history, stress, post menopause PROCEDURE: Gino protocol. Rest dose- 10.1 mCi of Tc-99m Myoview given intravenously. Stres s dose- At 02:39 minutes 30.9 mCi of Tc-99m Myoview given intravenously. Injected 0.4 mg IV of Lexiscan over 10 seconds at 01:50 minutes to complete stress. Effective Dose Equivalent : 14.0 mSv. The predicted exercise time was 02:30 minutes. Patient's Predicted Maximum HR: 1 40. Patient's Predicted 85% Max HR: 119. REST DATA: HR: 47 bpm BP: 150 / 77. Rest EKG shows sinus bradycardia with nonspecific ST abnormalities. STRESS DATA: Exercise Time: 01:42 minutes, HR achieved: 116 bpm, Max BP: 150 / 77. RPP: 207 57. METS: 4.60. Symptoms shortness of breath, headache The test was terminated due to Lexisc an intervention for shortness of breath, Walked to 82 % MPHR. Stress EKG showed [address] depression in a diffuse pattern that became more prominent during recovery phase before it normalized. GATED IMAGES: Rest EDV: 88 mL Rest ESV: 24 mL Stress EDV: 85 mL Stress ESV: 18 mL. EJECTION FRACTION: REST EF: 73% STRESS EF: 79%. IMAGIN. The quality of the study is adequate. 2. SPECT images showed no significant perfusion defect both at rest and during exercise. (SSS: 0 SRS: 1 SDS: 0 TID: 0.85). 3. Gated SPECT images showed normal wall motions. 4. Gated SPECT images showed normal wall thickening. 5. The RV function appears normal. 6. The Stoner Treadmill Score is -3. 7. Comparison of previous nuclear stress test on 08/04/2006 showed similar EKG changes. IMPRESSION: This is an abnormal stress test based on the ST depression that became more prominent durin g recovery phase after Lexiscan infusion, however perfusion appears to be normal with no tra nsient ischemic dilatation. Ac Rahman MD, [facility] Assessment/Plan ASSESSMENT: 1. Chest pain some features of angina pectoris and abnormal stress test despite medical the rapy 2. Coronary artery disease with previous stenting of left anterior descending artery in May 3. Historically preserved left ventricular systolic function 4. Hyperlipidemia with refusal to take stenting 5. Refusal to take aspirin Plan: I reviewed with Mena result of her stress test. She did have significant ST depression with Lexiscan infusion. Although the perfusion images suggested no significant defect unit with her ST depression I think the result of her stress test indicates a high likelihood of significant progression of her coronary artery disease and with her continuous symptoms I t hink coronary angiography is indicated.The procedure, with its associated alternatives, bene fits, and risks, the latter including but not limited to possible need for more than one vas cular access site, , MT, CVA, bleeding (including the need for blood transfusion), vasc ular damage (including the need for emergent surgical repair, including PCI/stent placement or CABG), renal failure (including the possible need for short or long-term use of hemodialy sis), allergic reactions/anaphylaxis, and the risks of moderate anesthesia/sedation, were di scussed in detail. I again talked to her extensively about aspirin therapy and she tells m e that she was diagnosed with allergy to many years ago however she keeps some at home to tisha cope on occasion. I asked her to start taking a baby aspirin and that me know if she has any reaction to it. I will not start Plavix at this time in case that she needed coronary art lakesha bypass surgery. *This report has been prepared using a voice recognition system. The report was reviewed fo r accuracy, however, sound-alike word errors, addition and/or deletions may occur. If there is any question about this report please contact me. Ac Rahman M.D. F.A.C.C. documented in this encounte r Plan of Treatment Not on filedocumented as of this encounter Procedures + +--------+ + + + | Procedure Name | Priori | Date/Time | Associated Diagnosis | Comments | | | ty | | | | + +--------+ + + + | EXTERNAL LAB: CBC | Routin | 08/26/2015 | | Results for this | | | e | 1:32 PM | | procedure are in the | | | | PDT | | results section. | + +--------+ + + + | BASIC METABOLIC | Routin | 08/26/2015 | | Results for this | | PANEL | e | 1:32 PM | | procedure are in the | | | | PDT | | results section. | + +--------+ + + + documented in this encounter Results External Lab: CBC (08/26/2015 1:32 PM PDT) + + + + + + | Component | Value | Ref Range | Performed | Pathologist | | | | | At | Signature | + + + + + + | WBC | 8.91Comment: Testing | 3.80 - 11.00 | EXTERNAL | | | | performed at [facility];[address] | K/uL | LAB | | | | [address];[place], [place] | | | | | | [address] | | | | + + + + + + | Non- | 3.91Comment: Testing | 3.70 - 5.10 | EXTERNAL | | | Red Blood | performed at [facility];[address] | M/uL | LAB | | | Cells | [address];[place] | | | | | Counted | [address] | | | | + + + + + + | Hemoglobin | 11.7Comment: Testing | 11.3 - 15.5 | EXTERNAL | | | | performed at [facility];[address] | g/dL | LAB | | | | [address];[place] | | | | | | [address] | | | | + + + + + + | Hematocrit, | 33.8 (L)Comment: Testing | 34.0 - 46.0 % | EXTERNAL | | | POC | performed at [facility];[address] | | LAB | | | | [address];[place] | | | | | | [address] | | | | + + + + + + | MCV | 86.4Comment: Testing | 80.0 - 100.0 fl | EXTERNAL | | | | performed at [facility];[address] | | LAB | | | | [address];[place] | | | | | | [address] | | | | + + + + + + | MCH | 29.8Comment: Testing | 27.0 - 34.0 pg | EXTERNAL | | | | performed at [facility];[address] | | LAB | | | | [address];[place] | | | | | | [address] | | | | + + + + + + | MCHC | 34.5Comment: Testing | 32.0 - 35.5 | EXTERNAL | | | | performed at [facility];[address] | g/dL | LAB | | | | [address];[place] | | | | | | [address] | | | | + + + + + + | RDW-CV | 41.6Comment: Testing | 37 - 53 fl | EXTERNAL | | | | performed at [facility];[address] | | LAB | | | | [address];[place] | | | | | | [address] | | | | + + + + + + | Platelet | 286Comment: Testing | 150 - 400 K/uL | EXTERNAL | | | Count | performed at [facility];[address] | | LAB | | | Plasma | [address];[place] | | | | | | [address] | | | | + + + + + + | MPV | 7.2Comment: Testing | fl | EXTERNAL | | | | performed at [facility];[address] | | LAB | | | | [address];[place] | | | | | | [address] | | | | + + + + + + | Differentia | AUTOMATEDComment: | | EXTERNAL | | | l Type | Testing performed at | | LAB | | | | [facility];[address];[place] [address] | | | | + + + + + + | % Segmented | 66.43Comment: Testing | % | EXTERNAL | | | | performed at [facility];[address] | | LAB | | | Neutrophils | [address];[place] | | | | | | [address] | | | | + + + + + + | % | 21.80Comment: Testing | % | EXTERNAL | | | Lymphocytes | performed at [facility];[address] | | LAB | | | | [address];[place] | | | | | | [address] | | | | + + + + + + | % Monocytes | 7.17Comment: Testing | % | EXTERNAL | | | | performed at [facility];[address] | | LAB | | | | [address];[place] | | | | | | [address] | | | | + + + + + + | % | 3.58Comment: Testing | % | EXTERNAL | | | Eosinophils | performed at [facility];[address] | | LAB | | | | [address];[place] | | | | | | [address] | | | | + + + + + + | % Basophils | 1.02Comment: Testing | % | EXTERNAL | | | | performed at [facility];[address] | | LAB | | | | [address];[place] | | | | | | [address] | | | | + + + + + + | Absolute | 5.92Comment: Testing | 1.90 - 7.40 | EXTERNAL | | | Segmented | performed at [facility];[address] | K/uL | LAB | | | Neutrophils | [address];[place] | | | | | | [address] | | | | + + + + + + | Absolute | 1.94Comment: Testing | 1.00 - 3.90 | EXTERNAL | | | Lymphocytes | performed at [facility];[address] | K/uL | LAB | | | | [address];[place] | | | | | | [address] | | | | + + + + + + | Absolute | 0.64Comment: Testing | 0.00 - 0.80 | EXTERNAL | | | Monocytes | performed at [facility];[address] | K/uL | LAB | | | | [address];[place] | | | | | | [address] | | | | + + + + + + | Absolute | 0.32Comment: Testing | 0.00 - 0.50 | EXTERNAL | | | Eosinophils | performed at [facility];[address] | K/uL | LAB | | | | [address];[place] | | | | | | [address] | | | | + + + + + + | Absolute | 0.09Comment: Testing | 0.00 - 0.10 | EXTERNAL | | | Basophils | performed at [facility];[address] | K/uL | LAB | | | | [address];[place] | | | | | | [address] | | | | + + + + + + + + | Specimen | + + | Blood specimen | | (specimen) | + + + +---------+ + + | Performing | Address | City/State/Zipcode | Phone Number | | Organization | | | | + +---------+ + + | EXTERNAL LAB | | | | + +---------+ + + Basic Metabolic Panel (08/26/2015 1:32 PM PDT) + + + + + + | Component | Value | Ref Range | Performed | Pathologist | | | | | At | Signature | + + + + + + | Na | 132 (L)Comment: NOTE NEW | 135 - 145 | EXTERNAL | | | | REFERENCE RANGETesting | mmol/L | LAB | | | | performed at [facility];[address] | | | | | | [address];[place] | | | | | | [address] | | | | + + + + + + | K | 4.0Comment: Testing | 3.5 - 4.9 | EXTERNAL | | | | performed at [facility];[address] | mmol/L | LAB | | | | [address];[place] | | | | | | [address] | | | | + + + + + + | Cl | 99Comment: Testing | 99 - 109 mmol/L | EXTERNAL | | | | performed at [facility];[address] | | LAB | | | | [address];[place] | | | | | | [address] | | | | + + + + + + | CO2 | 24Comment: Testing | 23 - 32 mmol/L | EXTERNAL | | | | performed at [facility];[address] | | LAB | | | | [address];[place] | | | | | | [address] | | | | + + + + + + | Anion Gap | 13Comment: Testing | 5 - 20 mmol/L | EXTERNAL | | | | performed at [facility];[address] | | LAB | | | | [address];[place] | | | | | | [address] | | | | + + + + + + | Glucose, | 99Comment: Testing | 65 - 99 mg/dL | EXTERNAL | | | Fasting | performed at [facility];[address] | | LAB | | | | [address];[place] | | | | | | [address] | | | | + + + + + + | BUN | 27 (H)Comment: Testing | 8 - 25 mg/dL | EXTERNAL | | | | performed at [facility];[address] | | LAB | | | | [address];[place] | | | | | | [address] | | | | + + + + + + | Creatinine | 0.89Comment: Testing | 0.50 - 1.00 | EXTERNAL | | | | performed at [facility];[address] | mg/dL | LAB | | | | [address];[place] | | | | | | [address] | | | | + + + + + + | BUN/Creatin | 31Comment: Testing | | EXTERNAL | | | ine Ratio | performed at [facility];[address] | | LAB | | | | [address];[place] | | | | | | [address] | | | | + + + + + + | Calcium | 9.4Comment: Testing | 8.5 - 10.5 | EXTERNAL | | | | performed at [facility];[address] | mg/dL | LAB | | | | [address];[place] | | | | | | [address] | | | | + + + + + + | Estimated | >60Comment: GFR <60: | mL/min/1.73m2 | EXTERNAL | | | GFR | CHRONIC KIDNEY DISEASE, | | LAB | | | | IF FOUND OVER A 3 MONTH | | | | | | PERIOD.GFR <15: KIDNEY | | | | | | FAILURE.FOR | | | | | | AMERICANS, MULTIPLY THE | | | | | | CALCULATED GFR BY | | | | | | 1.210.Testing performed | | | | | | at [facility];[address];[place] [address] | | | | + + + + + + + + | Specimen | + + | Blood specimen | | (specimen) | + + + +---------+ + + | Performing | Address | City/State/Zipcode | Phone Number | | Organization | | | | + +---------+ + + | EXTERNAL LAB | | | | + +---------+ + + documented in this encounter Visit Diagnoses + + | Diagnosis | + + | Abnormal stress test Other nonspecific abnormal cardiovascular system function study | + + | Coronary artery disease involving big sandy coronary artery of big sandy heart with angina | | pectoris with documented spasm (HCC) | + + documented in this encounter
--- OUTSIDE RECORDS SUMMARY | ~2019-11-09 | XMS | Encounter Summary ---
Demographics + + + | Address | [address] | | | [place] [address] | + + + | Home Phone | | + + + | Preferred Language | Unknown | + + + | Marital Status | | + + + | Jehovah'S Witness Affiliation | 1073 | + + + | Race | White | + + + | Ethnic Group | Not or | + + + Author + + + | Author | [facility] | | | and [place] | + + + | Organization | [facility] | | | and [place] | + + + | Address | Unknown | + + + | Phone | Unavailable | + + + Support + + + + + | Name | Relationship | Address | Phone | + + + + + | Susi Real | ECON | [address] | | | | | [place], [place] | | | | | [address] | | + + + + + | Georgie Nbole | ECON | Unknown | | + + + + + Care Team Providers + +------+ + | Care Garment Looper Name | Role | Phone | + +------+ + | Symone Oscar MD | PCP | | + +------+ + Reason for Visit + + + | Reason | Comments | + + + | Chest Pain | | + + + | Back Pain | | + + + | Emesis | | + + + Encounter Details +--------+ + + + + | Date | Type | Department | Care Team | Description | +--------+ + + + + | 08/02/ | Emergency | [facility] | Chevy Colindres | Chest pain in adult | | 2020 - | | [facility] | [address] | (Primary Dx); CAD in | | | | C[address] | [place] artery; | | 08/03/ | | [address] | [place], [place] | Hypertension, | | 2019 | | [place], [place] | [address] | unspecified type | | | | [address] | [phone] | | | | | [phone] | | | | | | | Tha, | | | | | | MD Alice [address] | | | | | | [address] | | | | | | [place] [address] | | | | | | [phone] | | | | | | | | | | | | Jean Silva | | | | | | Mike Griffin MD [address] | | | | | | [place], [place] | | | | | | [address] | | | | | | | [...] + + + documented in this encounter Discharge Summaries Jean Silva MD - 08/04/2019 11:08 PM PDTFormatting of this note might be diff erent from the original. Hospitalist Discharge Summary Patient: Constance Noble : 1935 Date of Admission: 08/03/2019 Date of Discharge: 08/04/2019 Discharging Provider: Jena Silva MD Discharge Diagnoses: Principal Problem: Chest pain Active Problems: CAD in [place] artery HTN (hypertension) Hyperlipidemia Resolved Problems: * No resolved hospital problems. * Procedures Performed: Chief Complaint: Chest Pain; Back Pain; and Emesis Hospital Course: Constance Noble is a 84 y.o. female past medical history positive coronary artery d isease status post stenting LAD, hypertension, hyperlipidemia who was admitted on 08/03/2019 w ith atypical chest pain, the patient complaining that over the last 2 months her blood press ure has been kind of hard to control even though she got started on Norvasc about 3 days ago , patient states that starting in the afternoon her blood pressure starts to go up and by 11 PM is really high and could go up to 200, patient therefore called the primary regional marketing manager office and was told to go to ED, patient had serial cardiac enzymes which were her out for [place], subsequently had a stress test which was low risk and reviewed by both wetlands conservation laborer echo card iography assist as well as by her primary regional marketing manager, no need for intervention. Her blood pressure got better controlled while in the hospital. Dr. rahman also saw her reassured h er about the findings on echocardiogram and stress test. Recommended adding chlorthalidone 25 mg daily as a diuretic on top of all her other blood pressure medications. Patient was t hen discharged home. Discharge Exam and Data: Vital Signs: BP 156/74 | Pulse 73 | Temp 36.9 C (98.4 F) (Oral) | Resp 18 | Ht 1.549 m (5' 1") | Wt 63.1 kg (139 lb 1.8 oz) | SpO2 96% | BMI 26.28 kg/m Physical Exam General Appearance: Alert, cooperative, no distress, appears stated age Head: Normocephalic, without obvious abnormality, atraumatic Eyes: PERRL, conjunctiva/corneas clear, EOM's intact, Ears: Normal external ear canals, both ears Nose: Nares normal, septum midline, mucosa normal, no drainage or sinus tenderness Throat: Lips, mucosa, and tongue normal; teeth and gums normal Neck: Supple, symmetrical, trachea midline, no adenopathy; thyroid: no enlargement/tenderness/nodules; no carotid bruit or JVD Back: Symmetric, no curvature, ROM normal, no CVA tenderness Lungs: Clear to auscultation bilaterally, respirations unlabored Chest Wall: No tenderness or deformity Heart: Regular rate and rhythm, S1 and S2 normal, no murmur, rub or gallop Abdomen: Soft, non-tender, bowel sounds active all four quadrants, no masses, no organomegaly Extremities: Extremities positive arthritic changes, atraumatic, no cyanosis or edema Pulses: 2+ and symmetric all extremities Skin: Skin color, texture, turgor normal, no rashes or lesions Lymph nodes: Cervical, supraclavicular, and axillary nodes normal Neurologic: CNII-XII intact, normal strength, sensation and reflexes throughout Recent Labs Recent Labs Lab 08/04/19 0531 WBC 8.43 HGB 10.7* HCT 31.9* PLT 260 Recent Labs Lab 08/04/19 0531 NA 131* K 3.6 CL 99 CO2 24 BUN 17 CALCIUM 10.0 No results for input(s): INR in the last 168 hours. No results for input(s): BEART in the last 168 hours. No results for input(s): APTT, INR, PTT in the last 168 hours. No results for input(s): TSH in the last 168 hours. Invalid input(s): T3FREE, FREET4 No results for input(s): TROPONINT in the last 168 hours. Invalid input(s): CKTOTAL, TROPONINI, CKMBINDEX @labmicrorcnt@ Recent Radiology Results Xr Chest 2 Vws Result Date: 08/03/2019 CHEST TWO VIEWS CLINICAL INFORMATION: Chest pain COMPARISON: XR CHEST 1 VIEW (07/14/2006); F INDINGS: Heart, lungs and vessels normal. No pneumothorax, pleural effusion or adenopathy. N o significant bone abnormality. Negative chest. Signed by: Tiff Morrison Steven Sign Date/Time: 08/03/2019 8:01 PM No results found. Outstanding Issues: Principal Problem: Accelerated hypertension/ Chest pain most likely related to the accelerated hypertensi on, losartan was increased to 100 mg daily, and besides her present blood pressure medicatio ns, chlorthalidone 25 mg daily was added For the rest of his chronic medical conditions continue previous home medications at the me doses and frequencies. Discharge Information: Follow up: Symone Oscar MD [address] [place] [address] Schedule an appointment as soon as possible for a visit Ac Rahman MD [address] [place] [address] Call in 10 days to tell them about your blood pressure Discharge Procedure Orders Diet fat and cholesterol modified; sodium restricted 2 gm Order Specific Question Answer Comments Type Diet fat and cholesterol modified sodium restictions sodium restricted 2 gm Call MD For: Order Comments: Blood pressure over 180/70 consistently and does not go down even if no hea dache or chest pain Discharge Medications New Medications Details amLODIPine 5 mg tablet Take 1 tablet by mouth Daily. At the time reccomendedc by Dr. pearson aka: VERONICA Start: August 05, 2019 chlorthalidone 25 mg tablet Take 1 tablet by mouth Daily. Changed Medications Details atenolol 25 mg tablet Take 25 mg by mouth. 1 am and 1-1/2 pm What changed: when to take this additional instructions aka: TENORMIN Unchanged Medications Details aspirin 81 MG EC tablet Take 81 mg by mouth daily with breakfast. atorvaSTATin 10 mg tablet Take 5 mg by mouth twice a week. aka: LIPITOR escitalopram 10 mg tablet Take 5 mg by mouth nightly. aka: LEXAPRO losartan 100 MG tablet Take 1 tablet by mouth Daily for 30 days. aka: COZAAR nitroglycerin 0.[address] 1 tablet under the tongue every 5 minutes as needed (Chest pain) for up to 25 days. aka: NITROSTAT Discontinued Medications fluticasone 50 mcg/nasal spray aka: FLONASE isosorbide mononitrate 10 MG tablet aka: ISMO,MONOKET PREMPRO 0.3-1.5 MG per tablet Generic drug: estrogen (conjugated)-medroxyprogesterone RETIN-A MICRO 0.04 % gel Generic drug: tretinoin microspheres TRIAVIL 4-25 PO Disposition: home Condition: Stable Code Status: Prior Discharge medications reconciliation was completed by myself. I carefully reviewed all the medications with the patient. All the dosages was confirmed with the patient to the best o f patient's knowledge. I resumed most of patient's home medication after talking to the patient. I informed the p atient that, If you are not taking any of those medicines or if you think that dose is not right please talk to the primary care doctor for adjustment of doses and medications. Gui soliz take all the medication to your PCP and show him what medication you are taking so that he can adjust your medications if needed. An After Visit Summary was printed and given to the patient. Patient verbalized understanding, agreement, and compliance with discharge plan. Discharge took more than 35 minutes, to include final examination, discussion of admission, and preparation of prescriptions, instructions for on-going care, follow-up and documentati on of discharge summary. Jean Silva MD 11:08 PM documented i n this encounter Discharge Instructions Instructions Jamey Cardozo RN - 08/04/2019 Gbsg-tl-Ryfo Checking Your Blood Pressure [employer] last reviewed this educational content on 06/26/201519992203-7122 [employer]. [address] [place] [address], [place] [address]. All righ ts reserved. This information is not intended as a substitute for professional medical care. Always follow your healthcare professional's instructions. Controlling High Blood Pressure High blood pressure (hypertension) is often called the silent killer. This is because many people who have it, don t know it. It can be very dangerous. High blood pressure can raise your risk of heart attack, stroke, heart disease, and heart failure. Controlling your blood pressure can decrease your risk of these problems. It's important to know the appropriate b lood pressure range and remember to check your blood pressure regularly. Doing so can save y our life. Blood pressure measurements are given as 2 numbers. Systolic blood pressure is the upper nu mber. This is the pressure when the heart contracts. Diastolic blood pressure is the lower n umber. This is the pressure when the heart relaxes between beats. Blood pressure is categorized as normal, elevated, or stage 1 or stage 2 high blood pressur e: Normal blood pressure is systolic of less than 120 and diastolic of less than 80 (120/80 ) Elevated blood pressure is systolic of 120 to 129 and diastolic less than 80 Stage 1 high blood pressure is systolic is 130 to 139 or diastolic between 80 to 89 Stage 2 high blood pressure is when systolic is 140 or higher or the diastolic is 90 or higher A heart-healthy lifestyle can help you control your blood pressure without medicines. Here are some things you can do to pursue a heart-healthy lifestyle: Choose heart-healthy foods Select low-salt, low-fat foods. Limit sodium intake to 2,400 mg per day or the amount vaughn ggested by your healthcare provider. Limit canned, dried, cured, packaged, and fast foods. These can contain a lot of salt. Eat 8 to 10 servings of fruits and vegetables every day. Choose lean meats, fish, or chicken. Eat whole-grain pasta, brown rice, and beans. Eat 2 to 3 servings of low-fat or fat-free dairy products. Ask your doctor about the DASH eating plan. This plan helps reduce blood pressure. When you go to a restaurant, ask that your meal be prepared with no added salt. Stay at a healthy weight Ask your healthcare provider how many calories to eat a day. Then stick to that number. Ask your healthcare provider what weight range is healthiest for you. If you are overwei ght, a weight loss of only 3% to 5% of your body weightcan help lower blood pressure. Mateo strickland, a good weight loss goal is to lose 10% of your body weight in a year. Limit snacks and sweets. Get regular exercise. Get up and get active Find activities you enjoy that can be done alone or with friends or family. Such activit ies might include bicycling, dancing, walking, or jogging. Park farther away from building entrances to walk more. Use stairs instead of the elevator. When you can, walk or bike instead of driving. [place] leaves, garden, or do household repairs. Be active at a moderate to vigorous level of physical activity for at least 40 minutes f or a minimum of 3 to 4 days a week. Manage stress Make time to relax and enjoy life. Find time to laugh. Communicate your concerns with your loved ones and your healthcare provider. Visit with family and friends, and keep up with hobbies. Limit alcohol and quit smoking Men should have no more than 2 drinks per day. Women should have no more than 1 drink per day. Talk with your healthcare provider about quitting smoking. Smoking significantly increas es your risk for heart disease and stroke. Ask your healthcare provider about community smok ing cessation programs and other options. Medicines If lifestyle changes aren t enough, your healthcare provider may prescribe high blood pre ssure medicine. Take all medicines as prescribed. If you have any questions about your medic nupur, ask your healthcare provider before stopping or changing them. [employer] last reviewed this educational content on 07/30/201819990916-7199 [employer]. [address] [place] [address], [place] [address]. All righ ts reserved. This information is not intended as a substitute for professional medical care. Always follow your healthcare professional's instructions. Chlorthalidone tablets What is this medicine? CHLORTHALIDONE (klor THAL i done) is a diuretic. It increases the amount of urine passed, w hich causes the body to lose salt and water. This medicine is used to treat high blood press ure and edema or water retention. How should I use this medicine? Take this medicine by mouth with a glass of water. Follow the directions on the prescriptio n label. It is best to take your dose in the morning with food. Take your medicine at regula r intervals. Do not take your medicine more often than directed. Do not stop taking except o n your doctor's advice. Talk to your mathematical sciences professor regarding the use of this medicine in children. Special care may be needed. What side effects may I notice from receiving this medicine? Side effects that you should report to your doctor or health physician primary care sports medicine as soon as p ossible: allergic reactions like skin rash, itching or hives, swelling of the face, lips, or tong ue dark urine dry mouth excess thirst fast, irregular heart rate fever, chills muscle pain, cramps, or spasm nausea, vomiting redness, blistering, peeling or loosening of the skin, including inside the mouth tingling, pain or numbness in the hands or feet unusually weak or tired yellowing of the eyes or skin Side effects that usually do not require medical attention (report to your doctor or health physician primary care sports medicine if they continue or are bothersome): diarrhea or constipation headache impotence loss of appetite stomach upset What may interact with this medicine? barbiturate medicines for sleep or seizure control digoxin lithium medicines for diabetes norepinephrine other medicines for high blood pressure some pain medicines steroid hormones like prednisone, cortisone, hydrocortisone, corticotropin tubocurarine What if I miss a dose? If you miss a dose, take it as soon as you can. If it is almost time for your next dose, ta ke only that dose. Do not take double or extra doses. Where should I keep my medicine? Keep out of the reach of children. Store at room temperature between 15 and 30 degrees C (59 and 86 degrees F). Keep container tightly closed. Throw away any unused medicine after the expiration date. What should I tell my health care provider before I take this medicine? They need to know if you have any of these conditions: asthma diabetes gout kidney disease liver disease parathyroid disease systemic lupus erythematosus (SLE) taking cortisone, digoxin, lithium carbonate, or drugs for diabetes an unusual or allergic reaction to chlorthalidone, sulfa drugs, other medicines, foods, dyes, or preservatives or trying to get breast-feeding What should I watch for while using this medicine? Visit your doctor or health physician primary care sports medicine for regular check ups. Check your blood press ure as directed. Ask your doctor or health physician primary care sports medicine what your blood pressure should be and when you should contact him or her. You may need to be on a special diet while taking this medicine. Ask your doctor. You may get drowsy or dizzy. Do not drive, use machinery, or do anything that needs mental alertness until you know how this medicine affects you. Do not stand or sit up quickly, malik eduardo if you are an older patient. This reduces the risk of dizzy or fainting spells. Alcoh ol may interfere with the effect of this medicine. Avoid alcoholic drinks. This medicine may affect your blood sugar level. If you have diabetes, check with your doct or or health physician primary care sports medicine before changing the dose of your diabetic medicine. This medicine can make you more sensitive to the sun. Keep out of the sun. If you cannot av oid being in the sun, wear protective clothing and use sunscreen. Do not use sun lamps or ta nning beds/booths. NOTE:This sheet is a summary. It may not cover all possible information. If you have questi ons about this medicine, talk to your doctor, pharmacist, or health care provider. Copyright 2020 [employer] Amlodipine tablets Brand Name: Veronica What is this medicine? AMLODIPINE (am HILARIA wright) is a calcium-channel jakub. It affects the amount of calcium found in your heart and muscle cells. This relaxes your blood vessels, which can reduce the amount of work the heart has to do. This medicine is used to lower high blood pressure. It i s also used to prevent chest pain. How should I use this medicine? Take this medicine by mouth with a glass of water. Follow the directions on the prescriptio n label. You can take it with or without food. If it upsets your stomach, take it with food. Take your medicine at regular intervals. Do not take it more often than directed. Do not st op taking except on your doctor's advice. Talk to your mathematical sciences professor regarding the use of this medicine in children. While this drug m ay be prescribed for children as young as 6 years for selected conditions, precautions do ap ply. Patients over 65 years of age may have a stronger reaction and need a smaller dose. What side effects may I notice from receiving this medicine? Side effects that you should report to your doctor or health physician primary care sports medicine as soon as p ossible: allergic reactions like skin rash, itching or hives; swelling of the face, lips, or tong ue fast, irregular heartbeat signs and symptoms of low blood pressure like dizziness; feeling faint or lightheaded, f alls; unusually weak or tired swelling of ankles, feet, hands Side effects that usually do not require medical attention (report these to your doctor or health physician primary care sports medicine if they continue or are bothersome): dry mouth facial flushing headache stomach pain tiredness What may interact with this medicine? Do not take this medicine with any of the following medications: tranylcypromine This medicine may also interact with the following medications: clarithromycin cyclosporine diltiazem itraconazole simvastatin tacrolimus What if I miss a dose? If you miss a dose, take it as soon as you can. If it is almost time for your next dose, ta ke only that dose. Do not take double or extra doses. Where should I keep my medicine? Keep out of the reach of children. Store at room temperature between 59 and 86 degrees F (15 and 30 degrees C). Throw away any unused medicine after the expiration date. What should I tell my health care provider before I take this medicine? They need to know if you have any of these conditions: heart disease liver disease an unusual or allergic reaction to amlodipine, other medicines, foods, dyes, or preserva tives or trying to get breast-feeding What should I watch for while using this medicine? Visit your healthcare professional for regular checks on your progress. Check your blood pr essure as directed. Ask your healthcare professional what your blood pressure should be and when you should contact him or her. Do not treat yourself for coughs, colds, or pain while you are using this medicine without asking your healthcare professional for advice. Some medicines may increase your blood press ure. You may get dizzy. Do not drive, use machinery, or do anything that needs mental alertness until you know how this medicine affects you. Do not stand or sit up quickly, especially if you are an older patient. This reduces the risk of dizzy or fainting spells. Avoid alcoholic drinks; they can make you dizzier. NOTE:This sheet is a summary. It may not cover all possible information. If you have questi ons about this medicine, talk to your doctor, pharmacist, or health care provider. Copyright 2020 [employer] Fast-Acting Nitroglycerin Nitroglycerin eases chest pain (angina) by getting more blood and oxygen to your heart. It also reduces the heart's need for oxygen by dilating arteries. Fast-acting nitroglycerin can stop an angina attack. Follow the steps below for taking this medicine. Note: Your healthcare provider may give you slightly different instructions. If so, follow them carefully. You can also take your nitroglycerin once to help prevent angina before you start doing activities that you know will bring on your angina. To stop an angina attack Sit down before you take your nitroglycerin. The medicine may make you feel dizzy because i t lowers your blood pressure rapidly. If you use tablets Place1 tablet under your tongue. Or place it between your lip and gum. Or put it betwe en your cheek and gum. Let the tablet dissolve all the way. Don't swallow or chew the tablet. Don't eat, drink, smoke, or chew tobacco as the tablet is dissolving. If you use spray Open your mouth and hold the sprayer just in front of your mouth. Press the button on the top. [place] once on orunder your tongue. Don't inhale. Close your mouth. Then wait a few seconds before you swallow. After taking1 tablet or spraying once Continue sitting for 5 minutes. If the angina goes away completely, rest for a while. Then continue your normal routine. Call 911 Call 911 if your angina lasts longer than 5 minutes and1 tablet or 1 spray has not reliev ed it. Don't delay. You may be having a heart attack! After you call 911, take a second tablet, or spray a second time. Wait another 5 minutes. I f the angina still doesn't go away, take a third tablet, or spray a third time. Don't take m ore than 3 tablets, or spray more than 3 times, within 15 minutes. Stay on the phone with 91 1 for more instructions. Precautions Limit how much alcohol you drink. Too much alcohol can cause dizziness or fainting. Tell your healthcare provider about any medicines, supplements, or herbs you use. Nitrog lycerin can interact with other medicines. This can cause serious problems. Don'ttake phosphodiesterase inhibitors such as sildenafil. These are medicines that he lp sexual function in men. The combination of nitroglycerin with these medicines can cause a severe drop in blood pressure. This can lead to dizziness, fainting, heart attack, or strok e. Check when your medicine expires. Nitroglycerin can become less effective over time. Keep some nitroglycerin with you at all times. Store most of your nitroglycerin in a tarik k bottle in your refrigerator. Tell your healthcare provider if your angina attacks last longer, occur more often, or a re more severe. Spike valdivia reviewed this educational content on 09/29/201819994797-8351 [employer], [place]. [address] [place] [address]. All righ ts reserved. This information is not intended as a substitute for professional medical care. Always follow your healthcare professional's instructions. documented in this encounter Medications at Time of Discharge + + + +---------+ + + | Medication | Sig | Dispensed | Refills | Start | End Date | | | | | | Date | | + + + +---------+ + + | amLODIPine | Take 1 tablet by | 30 | 0 | 08/05/19 | | | (NORVASC) 5 mg | mouth Daily. At the | tablet | | 20 | | | tablet | time reccomendedc by | | | | | | | Dr. pearson | | | | | + + [...] (TENORMIN) 25 mg | 1 am and 1-1/ pm | | | 14 | | [...] + + + +---------+ + + | chlorthalidone 25 | Take 1 tablet by | 30 | 1 | 08/04/19 | | | mg tablet | mouth Daily. | tablet | | 20 | | + + + +---------+ + + | escitalopram | Take 5 mg by mouth | | 0 | 05/15/19 | | | (LEXAPRO) 10 mg | nightly. | | | 16 | | | tablet | | | | | | + + + +---------+ + + | losartan (COZAAR) | Take 1 tablet by | 30 | 1 | 08/04/19 | | | 100 MG tablet | mouth Daily for 30 | tablet | | 20 | 0 | | | days. | | | | | + + + +---------+ + + | nitroglycerin | Place 1 tablet under | 25 | 6 | 08/04/19 | | | (NITROSTAT) 0.4 mg | the tongue every 5 | tablet | | 20 | 0 | | SL tablet | minutes as needed | | | | | | | (Chest pain) for up | | | | | | | to 25 days. | | | | | + + + +---------+ + + documented as of this encounter Progress Notes Jamey Cardozo RN - 08/04/2019 4:54 PM PDTAVS reviewed with patient and discharge teaching complete. Discharge medications reviewed and all questions answered. Local drug take back fl destin given to patient in discharge folder. Verified with patient that they have all belonging s. Vital signs stable at time of discharge. Escorted off unit by: Jamey TERRELL Transportation to home provided by: daughter lyssa Jamey Cardozo RN documented in this encou nter H&P Notes Alice Almazan MD - 08/03/2019 8:03 PM PDTFormatting of this note might be diffe rent from the original. Patient Name: Constance Noble Date of Admission: 08/03/2019 Referring Provider: Dr Colindres Reason for admission: Chest pain Chief Complaint: Chest pain HPI: Patient of 84-year-old female with a significant past medical history of coronary artery di sease status post stenting of the LAD, hypertension, dyslipidemia who comes with chest pain Patient refers that for the last couple weeks she is having episodes of unknown of back and chest discomfort. The pain is not related to any specific activity and sometimes happening even at rest. The pain starts in the back as in someone is punching her, 4 out of 10 of in tensity, radiated to the front, retrosternal area, with a pressure type sensation. This is associated with episodes of dyspnea. Denies any nausea, vomiting, sweating, lightheadedness or syncope. Lately, these episodes of back and chest discomfort has become more frequent a nd yesterday her blood pressure has been running high in the 180 range, reason why she decid ed to come to emergency department for further assessment and treatment. She does refers some mild chronic cough but no fever, sputum production. Positive mild low er extremity edema but no paroxysmal nocturnal dyspnea or orthopnea. In the ED, the patient has remained hemodynamically stable. EKG shows sinus rhythm, right bundle branch block, no acute ST changes. Chest x-ray is negative for any obvious consolida tion. First set of cardiac enzymes are negative. Patient will be admitted under the hospit alist service for further management. PMH: Past Medical History: Diagnosis Date Abnormal stress test mildly however with normal perfusion pattern CAD (coronary artery disease) stenting of left anterior descending artery HTN (hypertension) Hyperlipidemia PSH: Past Surgical History: Procedure Laterality Date CARDIAC CATHERIZATION CORONARY ANGIOPLASTY WITH STENT PLACEMENT TUBAL LIGATION Bilateral 1958 Medications: No current facility-administered medications on file prior to encounter. Current Outpatient Medications on File Prior to Encounter Medication Sig Dispense Refill aspirin 81 MG EC tablet Take 81 mg by mouth daily with breakfast. atenolol (TENORMIN) 25 mg tablet Take 25 mg by mouth. 1 am and 1-1/2 pm atorvaSTATin (LIPITOR) 10 mg tablet Take 5 mg by mouth twice a week. escitalopram (LEXAPRO) 10 mg tablet Take 5 mg by mouth nightly. estrogen, conjugated,-medroxyprogesterone (PREMPRO) 0.3-1.5 MG per tablet QD fluticasone (FLONASE) 50 mcg/nasal spray instill 1 spray into each nostril twice a day 0 isosorbide mononitrate (ISMO,MONOKET) 10 MG tablet 30 mg. losartan (COZAAR) 100 MG tablet Take 100 mg by mouth daily. nitroglycerin (NITROSTAT) 0.[address] 1 tablet under the tongue every 5 (fiv e) minutes as needed for Chest pain. 25 tablet 6 Perphenazine-Amitriptyline (TRIAVIL 4-25 PO) SHETTY PRN tretinoin microspheres (RETIN-A MICRO) 0.04 % gel 0.051 %. Allergies: Allergies Allergen Reactions Yann Inhibitors Cough Enalapril Cough FH: family history includes Heart attack in her father; Other (see comment) in her mother. SH: reports that she has never smoked. She has never used smokeless tobacco. Review of Systems Constitutional: Positive for malaise/fatigue. Negative for chills and fever. HENT: Negative for sinus pain. Respiratory: Positive for shortness of breath. Negative for cough, hemoptysis, sputum produ ction and wheezing. Cardiovascular: Positive for chest pain. Negative for palpitations, orthopnea, claudication and leg swelling. Gastrointestinal: Negative for abdominal pain, heartburn, nausea and vomiting. Genitourinary: Negative for dysuria. Musculoskeletal: Positive for back pain. Negative for myalgias. Neurological: Negative for dizziness, loss of consciousness and headaches. Psychiatric/Behavioral: Negative for depression. Physical Exam: BP 158/68 Comment: Simultaneous filing. User may not have seen previous data. | Pulse 60 | Temp 37.3 C (99.1 F) (Oral) | Resp 26 Comment: Simultaneous filing. User may not have seen previous data. | Ht 1.549 m (5' 1") | Wt 62.9 kg (138 lb 10.7 oz) | SpO2 97% Comment: Simultaneous filing. User may not have seen previous data. | BMI 26.20 kg/m Physical Exam Constitutional: She is oriented to person, place, and time. She appears well-developed. HENT: Head: Normocephalic. Eyes: Pupils are equal, round, and reactive to light. Neck: Normal range of motion. No JVD present. Cardiovascular: Normal rate and regular rhythm. Exam reveals no friction rub. No murmur heard. Pulmonary/Chest: Effort normal. No respiratory distress. She has no wheezes. She has no ral es. Abdominal: Soft. She exhibits no distension. There is no abdominal tenderness. There is no rebound. Musculoskeletal: General: Edema (mild) present. Neurological: She is alert and oriented to person, place, and time. Labs: Recent Results (from the past 24 hour(s)) CBC with Differential Result Value Ref Range WBC 9.93 3.80 - 11.00 K/uL RBC 3.93 3.70 - 5.10 M/uL Hemoglobin 11.5 11.3 - 15.5 g/dL Hematocrit 34.2 34.0 - 46.0 % MCV 87.0 80.0 - 100.0 fl MCH 29.3 27.0 - 34.0 pg MCHC 33.6 32.0 - 35.5 g/dL RDW-SD 41.7 37 - 53 fl Platelet Count 287 150 - 400 K/uL MPV 9.8 fl Diff Type AUTOMATED % nRBC 0.0 0 /100WBC % Neutrophils 75.30 % IMMATURE GRANULOCYTE 0.30 % % Lymphocytes 17.00 % Monocyte % 6.80 % Eosinophils % 0.50 % Basophils % 0.10 % Neutrophils, Absolute 7.47 (H) 1.90 - 7.40 K/uL IMMATURE GRANS AB 0.03 0.00 - 0.07 K/uL Absolute Lymphocytes 1.69 1.00 - 3.90 K/uL Absolute Monocytes 0.68 0.00 - 0.80 K/uL Eosinophils, Absolute 0.05 0.00 - 0.50 K/uL Basophils, Absolute 0.01 0.00 - 0.10 K/uL Comprehensive Metabolic Panel Result Value Ref Range Na 133 (L) 135 - 145 mmol/L K 3.9 3.5 - 4.9 mmol/L Cl 99 99 - 109 mmol/L CO2 24 23 - 32 mmol/L Anion Gap 14 5 - 20 mmol/L Glucose 121 (H) 65 - 99 mg/dL BUN 20 8 - 25 mg/dL Creatinine 0.80 0.50 - 1.00 mg/dL BUN/Creatinine Ratio 25 Calcium 9.9 8.5 - 10.5 mg/dL Protein, Total 7.3 6.3 - 8.2 g/dL Albumin 4.5 3.3 - 4.8 g/dL Globulin 2.8 1.3 - 4.9 g/dL A/G Ratio 1.6 1.0 - 2.4 BILIRUBIN, TOTAL 0.8 0.1 - 1.5 mg/dL ALK PHOS 74 35 - 115 U/L AST 122 (H) 10 - 45 U/L ALT 109 (H) 10 - 65 U/L Estimated GFR >60 >60 mL/min/1.73m2 Troponin I Result Value Ref Range Troponin I 0.007 0.00 - 0.04 ng/mL Problem List: Active Problems: * No active hospital problems. * Impression Patient of 84-year-old female with a significant past medical history of coronary artery di sease status post stenting of the LAD, hypertension, dyslipidemia who comes with back/chest pain and dyspnea for the last 2 weeks. -07/2015 cardiac catheterization-widely patent stent in the left anterior descending with le ss than 20% in-stent restenosis. -07/2018 nuclear stress test-low risk stress test -CxR-no obvious consolidation -EKG-sinus rhythm, right bundle branch block, no acute ST changes -Troponin I-0.007 Assessment -Chest pain. Will rule out cardiac etiologies, including acute coronary syndrome. If card iac work-up is negative, differential diagnosis include GERD and musculoskeletal. -Coronary artery disease status post stenting of LAD in 2005. Cardiac catheterization in 2 0[address] with [address] stent. Cardiology Dr Rahman -Dyslipidemia -Hypertension. With increased blood pressure but no signs of urgency/emergency, per clinic al exam Plan Admit to observation Telemetry EKG, A1c, lipid panel in the morning Cardiac enzymes x3 (moderate cardiac risk) Echocardiogram If cardiac enzymes are negative, will do a nuclear stress test We will start low-dose amlodipine. We will increase dose as needed Due to continuous chest discomfort we will start nitroglycerin drip (which will also help u s with blood pressure control) Aspirin, beta-jakub, statin therapy Pain management-nitroglycerin sublingual and morphine PRN for pain Antiemetic therapy DVT GI prophylaxis CODE STATUS-full code Alice Carr MD 08/03/19 docum ented in this encounter Consult Notes Ac Rahman MD - 08/04/2019 2:49 PM PDTFormatting of this note might be different from t deepali original. [facility] Service: Cardiology/[facility] History and Physical RE: Constance Noble : 1935 DATE OF SERVICE: 08/03/2019 PROVIDER:Ac Rahman MD SOURCE OF HISTORY: Patient and records CHIEF COMPLAINT: Hypertension and chest pain HISTORY OF PRESENT ILLNESS: Ms. Constance Noble is a pleasant 84-year-old lady with history of coron kenyatta artery disease and previous stenting of her proximal left anterior descending artery who presented to the emergency room yesterday after she checked her blood pressure and found to be elevated around 200 mmHg. She tells me retrospectively that her blood pressure has been increasing over the past 2 months. Initially she wanted to be evaluated however because of the pandemic she decided not to come right away. Her blood pressure continues to be elevat ed after increasing her losartan and adding a small dose of Norvasc. She drove yesterday fr om [place] for evaluation. She does complain of chest and back pain when her blood pressu re is elevated. In the hospital her blood pressure became under better control and she has not had any further episode of chest discomfort. She was ruled out for myocardial infarctio n and her risk stress test suggested no significant perfusion defect. Currently she is pain -free. PAST MEDICAL HISTORY: Past Medical History: Diagnosis Date Abnormal stress test mildly however with normal perfusion pattern CAD (coronary artery disease) stenting of left anterior descending artery HTN (hypertension) Hyperlipidemia FAMILY HISTORY: Family History Problem Relation Age of Onset Heart attack Father Hx of CHF Other (see comment) Mother CVA SOCIAL HISTORY: Social History Tobacco Use Smoking status: Never Smoker Smokeless tobacco: Never Used Substance Use Topics Alcohol use: Not on file Drug use: Not on file Comment: Drug use: No CURRENT MEDICATIONS: Medications Prior to Admission Medication Sig Dispense Refill aspirin 81 MG EC tablet Take 81 mg by mouth daily with breakfast. atenolol (TENORMIN) 25 mg tablet Take 25 mg by mouth. 1 am and 1-1/2 pm (Patient taking differently: Take 25 mg by mouth 2 times daily. (at 0200 and 1800)) atorvaSTATin (LIPITOR) 10 mg tablet Take 5 mg by mouth twice a week. escitalopram (LEXAPRO) 10 mg tablet Take 5 mg by mouth nightly. estrogen, conjugated,-medroxyprogesterone (PREMPRO) 0.3-1.5 MG per tablet QD fluticasone (FLONASE) 50 mcg/nasal spray instill 1 spray into each nostril twice a day 0 isosorbide mononitrate (ISMO,MONOKET) 10 MG tablet 30 mg. losartan (COZAAR) 100 MG tablet Take 100 mg by mouth daily. nitroglycerin (NITROSTAT) 0.[address] 1 tablet under the tongue every 5 (fiv e) minutes as needed for Chest pain. 25 tablet 6 Perphenazine-Amitriptyline (TRIAVIL 4-25 PO) SHETTY PRN tretinoin microspheres (RETIN-A MICRO) 0.04 % gel 0.051 %. ALLERGIES: Allergies Allergen Reactions Yann Inhibitors Cough Enalapril Cough REVIEW OF SYSTEMS: Constitutional: Positive for fatigue. No fever, chills, and rigors. No report of weight c hange. HEENT: Negative for nosebleeds, ear discharge, nasal congestion or soar throat. Respiratory: Negative for cough, sputum production, hemoptysis, wheezing. Negative for exe rtional shortness of breath. Cardiovascular: Negative for palpitations and no syncope. Negative for orthopnea. Positiv e chest pain or tightness. No LE edema. Gastrointestinal: Negative for nausea, vomiting, diarrhea, abdominal pain and blood in stoo l. Endocrine: Negative for diabetes mellitus Genitourinary: Negative for dysuria or hematuria. Musculoskeletal: Negative for myalgias. Positive for back pain and arthralgias. Skin: Negative for rash. Neurological: Negative for dizziness. No numbness. No recent falls. No slurred speech or am aurosis fugax. Negative for poor balance Hematological: No significant bruising. Psychiatric/Behavioral: No depression or anxiety. PHYSICAL EXAM: BP 156/74 | Pulse 73 | Temp 36.9 C (98.4 F) (Oral) | Resp 18 | Ht 1.549 m (5' 1") | Wt 63.1 kg (139 lb 1.8 oz) | SpO2 96% | BMI 26.28 kg/m Intake/Output Summary (Last 24 hours) at 08/04/2019 1449 Last data filed at 08/04/2019 0604 Gross per 24 hour Intake 527 ml Output 400 ml Net 127 ml GENERAL APPEARANCE: Alert, oriented, cooperative, no distress, appears stated age. HEENT: No xanthelasmas. Extraocular movements were intact. No jaundice. Pupiles round and reactive. NECK: No JVD, lymphadenopathy. Trachea is at midline. Thyroid is not palpable. Carotid ups trokes normal. No carotid bruit heard. CARDIAC: Regular rhythm and rate. There is normal S1 and S2. No galop. 2/6 holosystolic m urmur in the apex. Pedal pulses intact. CHEST: Normal bilateral symmetrical chest excursion. Good bilateral air entry with no crack les or wheezing. No evidence of dullness. ABDOMEN: Soft and lax. No tenderness or guarding. No palpable organs. Active bowel sounds . No pulsatile mass felt. EXTREMITIES: 1+ lower extremities edema. No varicose veins seen. NEURO: Alert and oriented times three with no focal deficit. Cranial nerves are grossly no rmal. SKIN: Warm and dry. No rash. Psych: Normal affect and mood. Lab Review LABORATORY RESULTS: Lab Results Component Value Date WBC 8.43 08/04/2019 HGB 10.7 (L) 08/04/2019 HCT 31.9 (L) 08/04/2019 PLT 260 08/04/2019 No results found for: INR, PTT Lab Results Component Value Date NA 131 (L) 08/04/2019 K 3.6 08/04/2019 CL 99 08/04/2019 CO2 24 08/04/2019 BUN 17 08/04/2019 CREA 0.70 08/04/2019 MG 1.8 08/04/2019 AST 73 (H) 08/04/2019 ALT 102 (H) 08/04/2019 Lab Results Component Value Date CHOL 168 08/03/2019 TRIG 54 08/03/2019 HDL 82 08/03/2019 LDL 75 08/03/2019 Cardiographics ECG: Imaging Chest X-Ray: Echo: 1. Sinus rhythm 2. And normal left ventricular systolic function. Ejection fraction estimated around 65 to 70% 3. Mitral valve is thickened and calcified. Specifically the posterior leaflet appears to be significantly thickened and might be related to prior vegetation. There is mild bileafle t prolapse. There is moderate mitral regurgitation 4. Biatrial dilatation 5. Mild tricuspid regurgitation with PA pressure estimated to be around 40-45 mmHg Stress test ASSESSMENT: 1. Chest pain, associated with hypotension 2. Hypertensive crisis 3. History of coronary artery disease with previous stenting of left anterior descending ar saniya, proven to be patent in 2016, now with benign stress test 4. Moderate mitral regurgitation with possible evidence of old vegetation on the mitral yosi ve 5. Hyperlipidemia 6. Right bundle branch block 7. Calcified soft tissue mass above the right breast PLAN: Ms. Noble presentation appears to be related to hypertension and hypertensive crisis. Her stress test is pretty benign and I do not think further ischemic evaluation is needed at this time. She does have moderate mitral regurgitation with calcified mitral leaflets that appears to be possibly related to an old vegetation which has not been documented before. Regardless her current presentation is not related to that. Effort has been and should cont inue be directed toward controlling her blood pressure. Her losartan was increased to 100 m g p.o. daily and her amlodipine was increased as well. I think it is reasonable to add a sm all dose of chlorthalidone 25 mg p.o. daily and I told her that it might take a week or so t o start seeing some steady effect. She does have calcified structure on her chest x-ray whi ch appears to be related to subcutaneous structure. She will follow-up with her primary car e physician on that. I will be happy to see her in the office in the next 2 to 3 weeks. *This report has been prepared using a voice recognition system. The report was reviewed fo r accuracy, however, sound-alike word errors, addition and/or deletions may occur. If there is any question about this report please contact me. Ac Rahman MD 08/04/2019 2:49 PM [facility] Service: Cardiology/[facility] History and Physical RE: Constance Noble : 1935 DATE OF SERVICE: 08/03/2019 PROVIDER:Ac Rahman MD SOURCE OF HISTORY: Patient and records CHIEF COMPLAINT: HISTORY OF PRESENT ILLNESS: Ms. Constance Noble PAST MEDICAL HISTORY: Past Medical History: Diagnosis Date Abnormal stress test mildly however with normal perfusion pattern CAD (coronary artery disease) stenting of left anterior descending artery HTN (hypertension) Hyperlipidemia FAMILY HISTORY: Family History Problem Relation Age of Onset Heart attack Father Hx of CHF Other (see comment) Mother CVA SOCIAL HISTORY: Social History Tobacco Use Smoking status: Never Smoker Smokeless tobacco: Never Used Substance Use Topics Alcohol use: Not on file Drug use: Not on file Comment: Drug use: No CURRENT MEDICATIONS: Medications Prior to Admission Medication Sig Dispense Refill aspirin 81 MG EC tablet Take 81 mg by mouth daily with breakfast. atenolol (TENORMIN) 25 mg tablet Take 25 mg by mouth. 1 am and 1-1/2 pm (Patient taking differently: Take 25 mg by mouth 2 times daily. (at 0200 and 1800)) atorvaSTATin (LIPITOR) 10 mg tablet Take 5 mg by mouth twice a week. escitalopram (LEXAPRO) 10 mg tablet Take 5 mg by mouth nightly. estrogen, conjugated,-medroxyprogesterone (PREMPRO) 0.3-1.5 MG per tablet QD fluticasone (FLONASE) 50 mcg/nasal spray instill 1 spray into each nostril twice a day 0 isosorbide mononitrate (ISMO,MONOKET) 10 MG tablet 30 mg. losartan (COZAAR) 100 MG tablet Take 100 mg by mouth daily. nitroglycerin (NITROSTAT) 0.[address] 1 tablet under the tongue every 5 (fiv e) minutes as needed for Chest pain. 25 tablet 6 Perphenazine-Amitriptyline (TRIAVIL 4-25 PO) SHETTY PRN tretinoin microspheres (RETIN-A MICRO) 0.04 % gel 0.051 %. ALLERGIES: Allergies Allergen Reactions Yann Inhibitors Cough Enalapril Cough REVIEW OF SYSTEMS: Constitutional: Positive for fatigue. No fever, chills, and rigors. No report of weight c hange. HEENT: Negative for nosebleeds, ear discharge, nasal congestion or soar throat. Respiratory: Negative for cough, sputum production, hemoptysis, wheezing. Positive for exer tional shortness of breath. Cardiovascular: Negative for palpitations and no syncope. Negative for orthopnea. No ches t pain or tightness. No LE edema. Gastrointestinal: [...] bruising. Psychiatric/Behavioral: No depression or anxiety. PHYSICAL EXAM: BP 156/74 | Pulse 73 | Temp 36.9 C (98.4 F) (Oral) | Resp 18 | Ht 1.549 m (5' 1") | Wt 63.1 kg (139 lb 1.8 oz) | SpO2 96% | BMI 26.28 kg/m Intake/Output Summary (Last 24 hours) at 08/04/2019 1449 Last data filed at 08/04/2019 0604 Gross per 24 hour Intake 527 ml Output 400 ml Net 127 ml GENERAL APPEARANCE: Alert, oriented, cooperative, no distress, appears stated age. HEENT: No xanthelasmas. Extraocular movements were intact. No jaundice. Pupiles round and reactive. NECK: No JVD, lymphadenopathy. Trachea is at midline. Thyroid is not palpable. Carotid ups trokes normal. No carotid bruit heard. CARDIAC: Regular rhythm and rate. There is normal S1 and S2. No galop. No murmur. Pedal pu lses intact. CHEST: Normal bilateral symmetrical chest excursion. Good bilateral air entry with no crack les or wheezing. No evidence of dullness. ABDOMEN: Soft and lax. No tenderness or guarding. No palpable organs. Active bowel sounds . No pulsatile mass felt. EXTREMITIES: No lower extremities edema. No varicose veins seen. NEURO: Alert and oriented times three with no focal deficit. Cranial nerves are grossly no rmal. SKIN: Warm and dry. No rash. Psych: Normal affect and mood. Lab Review LABORATORY RESULTS: Lab Results Component Value Date WBC 8.43 08/04/2019 HGB 10.7 (L) 08/04/2019 HCT 31.9 (L) 08/04/2019 PLT 260 08/04/2019 No results found for: INR, PTT Lab Results Component Value Date NA 131 (L) 08/04/2019 K 3.6 08/04/2019 CL 99 08/04/2019 CO2 24 08/04/2019 BUN 17 08/04/2019 CREA 0.70 08/04/2019 MG 1.8 08/04/2019 AST 73 (H) 08/04/2019 ALT 102 (H) 08/04/2019 Lab Results Component Value Date CHOL 168 08/03/2019 TRIG 54 08/03/2019 HDL 82 08/03/2019 LDL 75 08/03/2019 Cardiographics ECG: Imaging Chest X-Ray: Echo: Stress test Cath: ASSESSMENT: 8. PLAN: Ms. Noble *This report has been prepared using a voice recognition system. The report was reviewed fo r accuracy, however, sound-alike word errors, addition and/or deletions may occur. If there is any question about this report please contact me. Ac Rahman MD 08/04/2019 2:49 PM documented in thi s encounter ED Notes Chevy Colindres, - 08/03/2019 7:15 PM PDTFormatting of this note might be differen t from the original. [facility] Department of Emergency Medicine 7:15 PM No flowsheet data found. History of Present Illness Patient Identification Constance Noble is a 84 y.o. female. Patient information was obtained from patient History/Exam limitations: none. Patient presented to the Emergency Department by: car History of Presenting Illness The patient is a 84 y.o. female presenting with Chief Complaint Patient presents with Chest Pain Back Pain Emesis Location- Chest Onset- last night Duration- intermittent Severity/Character- moderate, left sided chest pain and pressure Worse with- walking, exertion Better with- none Radiation- left side Denies- sweating, or any other symptoms at this time Admits- SOB, back pain, nausea, vomiting Context-Patient began experiencing chest pain last night. She rates the pain between 5 and 6 and describes it as chest pressure. She has also been experiencing back pain, and high blo od pressure. She denies history of myocardial infarction. She does have one heart stent plac ed in 2006. She takes low dose aspirin. Patient denies smoking, DM, high cholesterol. PCP: Symone Oscar MD Specialists: Past Medical History: Diagnosis Date Abnormal stress test mildly however with normal perfusion pattern Accelerated hypertension 08/03/2019 CAD (coronary artery disease) stenting of left anterior descending artery HTN (hypertension) Hyperlipidemia Past Surgical History: Procedure Laterality Date CARDIAC CATHERIZATION CORONARY ANGIOPLASTY WITH STENT PLACEMENT TUBAL LIGATION Bilateral 1958 Prior to Admission medications Medication Sig Start Date End Date Taking? Authorizing Provider aspirin 81 MG EC tablet Take 81 mg by mouth daily with breakfast. 08/26/15 Provider Unknow n Conversion Transaction atenolol (TENORMIN) 25 mg tablet Take 25 mg by mouth. 1 am and 1-1/2 pm 12/14/13 Provider Unknown Conversion Transaction atorvaSTATin (LIPITOR) 10 mg tablet Take 5 mg by mouth twice a week. 12/14/13 Provider Un known Conversion Transaction escitalopram (LEXAPRO) 10 mg tablet Take 5 mg by mouth nightly. 05/15/15 Provider Unknown Conversion Transaction estrogen, conjugated,-medroxyprogesterone (PREMPRO) 0.3-1.5 MG per tablet QD 08/26/16 Hist orical Provider, fluticasone (FLONASE) 50 mcg/nasal spray instill 1 spray into each nostril twice a day 10/12 Historical Provider, isosorbide mononitrate (ISMO,MONOKET) 10 MG tablet 30 mg. 08/26/16 Historical Provider, losartan (COZAAR) 100 MG tablet Take 100 mg by mouth daily. 12/14/13 Provider Unknown Con version Transaction nitroglycerin (NITROSTAT) 0.[address] 1 tablet under the tongue every 5 (five) m inutes as needed for Chest pain. 08/23/18 Ac Rahman MD Perphenazine-Amitriptyline (TRIAVIL 4-25 PO) SHETTY PRN 08/26/16 Historical Provider, tretinoin microspheres (RETIN-A MICRO) 0.04 % gel 0.051 %. 08/26/16 Historical ProviderGaby Allergies Allergen Reactions Yann Inhibitors Cough Enalapril Cough Social History Socioeconomic History Marital status: Spouse name: Not on file Number of children: Not on file Years of education: trade ada. Highest education level: Not on file Occupational History Not on file Social Needs Financial resource strain: Not on file Food insecurity: Worry: Not on file Inability: Not on file Transportation needs: Medical: Not on file Non-medical: Not on file Tobacco Use Smoking status: Never Smoker Smokeless tobacco: Never Used Substance and Sexual Activity Alcohol use: Not on file Drug use: Not on file Comment: Drug use: No Sexual activity: Not on file Lifestyle Physical activity: Days per week: Not on file Minutes per session: Not on file Stress: Not on file Relationships Social connections: Talks on phone: Not on file Gets together: Not on file Attends bahai service: Not on file Active member of club or organization: Not on file Attends meetings of clubs or organizations: Not on file Relationship status: Not on file Intimate partner violence: Fear of current or ex partner: Not on file Emotionally abused: Not on file Physically abused: Not on file Forced sexual activity: Not on file Other Topics Concern Not on file Social History Narrative Not on file Family History Problem Relation Age of Onset Heart attack Father Hx of CHF Other (see comment) Mother CVA I have personally reviewed the social history, pertinent history has been addressed. Review of Systems Constitutional: Negative for fever, chills Eyes: Negative for vision changes Nose: Negative for congestion, nosebleeds Throat: Negative for sore throat CV/Resp: Negative for cough. Positive for chest pain, [id number] GI: Negative for abdominal pain, diarrhea. Positive for nausea, vomiting : Negative for urinary problems Musculoskeletal: Negative for joint pain. Positive for back pain Skin: Negative for rash Neuro/Psych: Negative for headache Endo/heme/Lymph: Negative for swollen lymph nodes, easy bruising Physical Exam Temp: 36.6 C (97.9 F) Pulse: 60 Resp: 20 BP: 174/79 SpO2: 95 % Vital signs interpretation: elevated BP, otherwise wnl Pulse Oximetry interpretation: Normal General: Alert, in no apparent distress Eyes: Normal inspection, pupils equal and round, non-icteric ENT: Ears normal Nose normal Moist mucous membranes Oropharynx clear Neck: Normal inspection Supple Cardiovasc: Rate and rhythm normal No murmurs Respiratory: Breath sounds normal bilaterally No rales, wheezing or rhonchi Abdomen: Soft, non-tender, non-distended No guarding or rebound No peritoneal sign Genitourinary: Deferred Rectal exam: Deferred Back: Normal inspection Extremities: No swelling or redness Skin: Color normal Warm and dry No rash Neuro: Alert, no AMS No gross motor/sensory deficits Moving all extremities Medical Decision Making and Emergency Department Course ED Department Course 84 y.o. female presents to the ED with a chief complaints of chest pain. I am most concern ed for possible ACS, musculoskeletal pain, pneumonia, vs other. I will order labs, imaging, treat symptomatically and reevaluate the patient. Review of vitals Temp: 36.9 C (98.4 F) Pulse: 73 Resp: 18 BP: 156/74 SpO2: 96 % CBC results were unremarkable CMP results showed high AST at 122 and high ALT at 109. Troponin I results were unremarkable. 7:53 PM Reevaluated and updated pt on results. Discussed plan for admission. Pt is agreeabl e XR Chest results are negative. 8:[address] Walter, hospitalist who accepts pt for admission. Medications aspirin tablet 325 mg (325 mg Oral Given 08/03/191939) technetium TC-99M sestamibi (CARDIOLITE) injection 10 millicurie (11.7 millicuries Intraven ous Given 08/04/19 1117) technetium TC-99M sestamibi (CARDIOLITE) injection 30 millicurie (32 millicuries Intravenou s Given 08/04/19 1417) Records Reviewed Old medical records. Nursing notes. Laboratory Evaluation Results Procedure Component Value Ref Range Date/Time Comprehensive Metabolic Panel [[id number]] (Abnormal) Collected: 08/03/191921 Order Status: Completed Specimen: Blood Updated: 08/03/191946 Na 133 135 - 145 mmol/L K 3.9 3.5 - 4.9 mmol/L Cl 99 99 - 109 mmol/L CO2 24 23 - 32 mmol/L Anion Gap 14 5 - 20 mmol/L Glucose 121 65 - 99 mg/dL BUN 20 8 - 25 mg/dL Creatinine 0.80 0.50 - 1.00 mg/dL BUN/Creatinine Ratio 25 Calcium 9.9 8.5 - 10.5 mg/dL Protein, Total 7.3 6.3 - 8.2 g/dL Albumin 4.5 3.3 - 4.8 g/dL Globulin 2.8 1.3 - 4.9 g/dL A/G Ratio 1.6 1.0 - 2.4 BILIRUBIN, TOTAL 0.8 0.1 - 1.5 mg/dL ALK PHOS 74 35 - 115 U/L AST 122 10 - 45 U/L ALT 109 10 - 65 U/L Estimated GFR >60 >60 mL/min/1.73m2 Troponin I [[id number]] Collected: 08/03/191921 Order Status: Completed Specimen: Blood Updated: 08/03/191946 Troponin I 0.007 0.00 - 0.04 ng/mL CBC with Differential [[id number]] (Abnormal) Collected: 08/03/191921 Order Status: Completed Specimen: Blood Updated: 08/03/191932 WBC 9.93 3.80 - 11.00 K/uL RBC 3.93 3.70 - 5.10 M/uL Hemoglobin 11.5 11.3 - 15.5 g/dL Hematocrit 34.2 34.0 - 46.0 % MCV 87.0 80.0 - 100.0 fl MCH 29.3 27.0 - 34.0 pg MCHC 33.6 32.0 - 35.5 g/dL RDW-SD 41.7 37 - 53 fl Platelet Count 287 150 - 400 K/uL MPV 9.8 fl Diff Type AUTOMATED % nRBC 0.0 0 /100WBC % Neutrophils 75.30 % IMMATURE GRANULOCYTE 0.30 % % Lymphocytes 17.00 % Monocyte % 6.80 % Eosinophils % 0.50 % Basophils % 0.10 % Neutrophils, Absolute 7.47 1.90 - 7.40 K/uL IMMATURE GRANS AB 0.03 0.00 - 0.07 K/uL Absolute Lymphocytes 1.69 1.00 - 3.90 K/uL Absolute Monocytes 0.68 0.00 - 0.80 K/uL Eosinophils, Absolute 0.05 0.00 - 0.50 K/uL Basophils, Absolute 0.01 0.00 - 0.10 K/uL I personally reviewed the lab results and they have been posted to the chart. Pertinent po sitive and negative findings have been addressed appropriately and I have discussed any abno rmal labs with the patient. Radiology and EKG Evaluation Imaging Results XR Chest 2 Vws (Final result) Result time 08/03/19 20:01:26 Final result by Justino Morrison MD (08/03/19 20:01:26) Impression: Negative chest. Signed by: Tiff Morirson, Justino Sign Date/Time: 08/03/2019 8:01 PM Narrative: CHEST TWO VIEWS CLINICAL INFORMATION: Chest pain COMPARISON: XR CHEST 1 VIEW (07/14/2006); FINDINGS: Heart, lungs and vessels normal. No pneumothorax, pleural effusion or adenopathy. No significant bone abnormality. ====EKG Interpretation==== Time: 1849 Rate: 66 Rhythm: Sinus [place]: normal Intervals: RBBB ST: normal Compared to 07/14/18 there is no change Overall: Non-specific EKG Interpreted by Chevy Colindres D.O. Rhythm strip analysis: normal sinus rhythm 1. Chest pain in adult 2. CAD in [place] artery 3. Hypertension, unspecified type Disposition: ED Disposition ED Disposition Condition Comment Admit Attending: ALICE ALMAZAN [[id number]] Follow-up Information Schedule an appointment as soon as possible for a visit with Symone Oscar MD. Specialty: Family Medicine Contact information: [address] [facility] [place] [id number] Call Ac Rahman MD. Specialty: Internal Medicine - Cardiovascular Disease Why: in 10 days to tell them about your blood pressure Contact information: [address] [place] [address] Procedures Attending Provider Note: Chevy Harper DO, personally performed the services desc ribed in this documentation, as scribed by Aundrea Weinberg Che in my presence, and it is both acc urate and complete. Chart Reviewed and Completed. Scribe: Aundrea Harper Che, scribe, scribing for and in the presence of Chevy Colindres DO. Completed by: jaylin Fermin Che 08/04/19 3:39 AM. Attending Provider Note: Chevy Harper DO personally performed the services descr ibed in this documentation, as scribed by Jacinta Culver in my presence, and it is both accura te and complete. Chart Reviewed and Completed. Scribe: I Jacinta Berwind,Scribe, scribing for and in the presence of Chevy Colindres DO. Completed by: Jaylin Kovacs 08/04/2019 3:39 AM Chevy Colindres DO 08/05/19 0027 documented in th is encounter Miscellaneous Notes Plan of Care - Jamey Cardozo RN - 08/04/2019 1:14 PM PDT Problem: Adult Inpatient Plan of Care Goal: Plan of Care Review Outcome: Ongoing, progressing Plan of care reviewed with patient. Problem: Pain (Acute Coronary Syndrome) Goal: Absence of Cardiac-Related Pain Outcome: Ongoing, progressing Denies chest pain, off of nitro gtt. lan of Care - Fiorella Marquez RN - 08/04/2019 8:03 AM PDTCare Management Initial Assessment Readmission Risk: Medium Pt admitted with CP. She lives at home with her family and is independent with her ADLs. She does not use a walker, cane, oxygen, etc. Status Prior to Admission or Illness Arrival From: admitted as an inpatient, home or self-care Lives With: child(concha), adult Living Arrangements: house Caregiver For: no one Functional Status: independent. Transportation Available: family or friend will provide Care Management Concerns Readmission Within Last 30 Days: no previous admission in last 30 days PCP: Symone Oscar MD Contact Information Family Contact Information: Name: Susi . [place] Needs Assessment Current Outpt/Agency/Support Groups: none Anticipated Changes Related to Illness: none Concerns to be Addressed: no discharge needs identified Services Anticipated at Discharge: none Equipment Used at Home: none Initial Plan Anticipated Discharge Disposition: home Electronically signed: Fiorella Marquez RN 08/04/2019 8:03 AM lan of Care - Ivanna Truong RN - 08/04/2019 5:30 AM PDTVSS, afebrile. Pt denies CP, although c/o back pa in rated 2/10. Given Tylenol x1. Pt also c/o reflux, given tumsx2 and pt stated improvement. NPO since midnight, no beta jakub given. Plan for stress test today. End of shift chart check complete. Ivanna Hassan RN Problem: Adult Inpatient Plan of Care Goal: Plan of Care Review Outcome: Ongoing, progressing Problem: Pain (Acute Coronary Syndrome) Goal: Absence of Cardiac-Related Pain Outcome: Ongoing, progressing documented in this encounter Plan of Treatment Not on filedocumented as of this encounter Procedures + +--------+ + + + | Procedure Name | Priori | Date/Time | Associated Diagnosis | Comments | | | ty | | | | + +--------+ + + + | NM NUCLEAR STRESS | Routin | 08/04/2019 | | Results for this | | TEST (EXERCISE) | e | 2:43 PM | | procedure are in the | | | | PDT | | results section. | + +--------+ + + + | TROPONIN I | Routin | 08/04/2019 | | Results for this | | | e | 10:47 AM | | procedure are in the | | | | PDT | | results section. | + +--------+ + + + | CK-MB | Routin | 08/04/2019 | | Results for this | | | e | 10:47 AM | | procedure are in the | | | | PDT | | results section. | + +--------+ + + + | ECHO COMPLETE | Routin | 08/04/2019 | | Results for this | | | e | 9:28 AM | | procedure are in the | | | | PDT | | results section. | + +--------+ + + + | TROPONIN I | Routin | 08/04/2019 | | Results for this | | | e | 5:31 AM | | procedure are in the | | | | PDT | | results section. | + +--------+ + + + | CK-MB | Routin | 08/04/2019 | | Results for this | | | e | 5:31 AM | | procedure are in the | | | | PDT | | results section. | + +--------+ + + + | CBC WITH | Routin | 08/04/2019 | | Results for this | | DIFFERENTIAL | e | 5:31 AM | | procedure are in the | | | | PDT | | results section. | + +--------+ + + + | MAGNESIUM | Routin | 08/04/2019 | | Results for this | | | e | 5:31 AM | | procedure are in the | | | | PDT | | results section. | + +--------+ + + + | COMPREHENSIVE | Routin | 08/04/2019 | | Results for this | | METABOLIC PANEL | e | 5:31 AM | | procedure are in the | | | | PDT | | results section. | + +--------+ + + + | ECG 12 LEAD | Routin | 08/04/2019 | | Results for this | | | e | 4:25 AM | | procedure are in the | | | | PDT | | results section. | + +--------+ + + + | LIPID PANEL | Routin | 08/03/2019 | | Results for this | | | e | 11:18 PM | | procedure are in the | | | | PDT | | results section. | + +--------+ + + + | HEMOGLOBIN A1C | Routin | 08/03/2019 | | Results for this | | | e | 11:18 PM | | procedure are in the | | | | PDT | | results section. | + +--------+ + + + | XR CHEST 2 VIEWS | STAT | 08/03/2019 | | Results for this | | | | 7:47 PM | | procedure are in the | | | | PDT | | results section. | + +--------+ + + + | TROPONIN I | STAT | 08/03/2019 | | Results for this | | | | 7:22 PM | | procedure are in the | | | | PDT | | results section. | + +--------+ + + + | CBC WITH | STAT | 08/03/2019 | | Results for this | | DIFFERENTIAL | | 7:22 PM | | procedure are in the | | | | PDT | | results section. | + +--------+ + + + | COMPREHENSIVE | STAT | 08/03/2019 | | Results for this | | METABOLIC PANEL | | 7:22 PM | | procedure are in the | | | | PDT | | results section. | + +--------+ + + + | ECG 12 LEAD | Routin | 08/03/2019 | | Results for this | | | e | 6:50 PM | | procedure are in the | | | | PDT | | results section. | + +--------+ + + + documented in this encounter Results NM Nuclear Stress Test (Exercise) (08/04/2019 2:43 PM PDT) + +--------+ + + + | Component | Value | Ref Range | Performed | Pathologist | | | | | At | Signature | + +--------+ + + + | BASELINE | 65 | bpm | [facility] | | | HEART RATE | | | | | + +--------+ + + + | BASELINE | 147/67 | mmHg | [facility] | | | BLOOD | | | | | | PRESSURE | | | | | + +--------+ + + + | PEAK HEART | 95 | | [facility] | | | RATE | | | | | + +--------+ + + + | PEAK BLOOD | 149/69 | mmHG | [facility] | | | PRESSURE | | | | | + +--------+ + + + | Target HR | 116 | | [facility] | | + +--------+ + + + | Percent HR | 70 | | [facility] | | + +--------+ + + + | Max | 136 | | [facility] | | | Predicted | | | | | | HR | | | | | + +--------+ + + + | LVEF-SPECT | 74 | % | [facility] | | | NUCLEAR | | | | | | STRESS/VIAB | | | | | | ILITY | | | | | + +--------+ + + + | NM stress | 72 | | [facility] | | | end | | | | | | diastolic | | | | | | volume | | | | | + +--------+ + + + | NM stress | 18 | | [facility] | | | end | | | | | | systolic | | | | | | volume | | | | | + +--------+ + + + | NM rest end | 60 | | [facility] | | | diastolic | | | | | | volume | | | | | + +--------+ + + + | NM rest end | 12 | | [facility] | | | systolic | | | | | | volume | | | | | + +--------+ + + + | TID VALUE | 1.05 | | [facility] | | + +--------+ + + + + + | Specimen | + + | | + + + + + | Narrative | Performed At | + + + | Low risk | [facility] | | myocardial perfusion study. Test is limited by breast and soft | | | tissue attenuation artifact. However cannot rule out small apical per | | | infarct ischemia. Stress EKG is non diagnostic for ischemia. | | | Normal left ventricular systolic function with no wall motion | | | abnormalities. | | | | | + + + + + | Procedure Note | + + | Enrrique Baltazar MD - 08/04/2019 2:40 PM PDT Low risk myocardial perfusion | | study. Test is limited by breast and soft tissue attenuation artifact. However cannot | | rule out small apical per infarct ischemia. Stress EKG is non diagnostic for | | ischemia. Normal left ventricular systolic function with no wall motion abnormalities. | | | + + + +---------+ + + | Performing | Address | City/State/Zipcode | Phone Number | | Organization | | | | + +---------+ + + | [facility] | | | | + +---------+ + + Troponin I (08/04/2019 10:47 AM PDT) + + + + + + | Component | Value | Ref Range | Performed | Pathologist | | | | | At | Signature | + + + + + + | Troponin I | 0.011Comment: 0.04 | 0.00 - 0.04 | [facility] | | | | ng/mL or less | ng/mL | LABORATORY | | | | Negative, repeat | | | | | | testing in four to six | | | | | | hour ifclinically | | | | | | indicted0.05 to 0.77 | | | | | | ng/mL | | | | | | Suspicious for | | | | | | myocardial injury. | | | | | | Serial measurementsmay | | | | | | be necessary to confirm | | | | | | or exclude the diagnosis | | | | | | of acute | | | | | | coronarysyndrome. Repeat | | | | | | testing in four to six | | | | | | hours if indicated.0.78 | | | | | | or greater ng/mL | | | | | | Consistent with | | | | | | myocardial injury. | | | | | | Clinical andlaboratory | | | | | | correlation recommended. | | | | | | Testing performed at | | | | | | [facility] | | | | | | [facility];[place] [address] | | | | + + + + + + + + | Specimen | + + | Blood | + + + + + + + | Performing | Address | City/State/Zipcode | Phone Number | | Organization | | | | + + + + + | [facility] | [address] | [place] [address] | [phone] | + + + + + CK-MB (08/04/2019 10:47 AM PDT) + + + + + + | Component | Value | Ref Range | Performed | Pathologist | | | | | At | Signature | + + + + + + | CK-MB | 3.5 | 0.5 - 3.6 ng/mL | [facility] | | | | | | LABORATORY | | + + + + + + | CK Index | UNABLE TO | | ALEX | | | | CALCULATEComment: | | LABORATORY | | | | Testing performed at | | | | | | [facility];[place] [address] | | | | + + + + + + + + | Specimen | + + | Blood | + + + + + + + | Performing | Address | City/State/Zipcode | Phone Number | | Organization | | | | + + + + + | [facility] | [address] | [place] [address] | [phone] | + + + + + ECHO Complete (08/04/2019 9:28 AM PDT) + + + + + + | Component | Value | Ref Range | Performed | Pathologist | | | | | At | Signature | + + + + + + | LVEF-TTE | 70 | % | [facility] | | | TRANSTHORAC | | | | | | IC ECHO | | | | | + + + + + + | RA PRESSURE | 3 | mmHg | [facility] | | + + + + + + | LVIDd | 4.73 | cm | [facility] | | + + + + + + | FS | 33 | % | [facility] | | + + + + + + | LA volume | 92.06 | mL | [facility] | | + + + + + + | Ascending | 3.01 | cm | [facility] | | | aorta | | | | | + + + + + + | AV | 399.27 | msec | [facility] | | | regurgitati | | | | | | on pressure | | | | | | 1/2 time | | | | | + + + + + + | AV mean | 5.06 | mmHg | [facility] | | | gradient | | | | | + + + + + + | Aortic | 2.35 | cm2 | [facility] | | | Valve Area | | | | | | by | | | | | | Continuity | | | | | | VTI | | | | | + + + + + + | MV mean | 116.28 | mmHg | [facility] | | | gradient | | | | | + + + + + + | PV peak | 3.8 | mmHg | [facility] | | | gradient | | | | | + + + + + + | LVOT | 2.08 | cm | [facility] | | | diameter | | | | | + + + + + + | LVOT peak | 119.95 | cm/s | [facility] | | | jose | | | | | + + + + + + | LVOT peak | 26.12 | cm | [facility] | | | VTI | | | | | + + + + + + | AV peak jose | 152.87 | cm/s | [facility] | | + + + + + + | AV VTI | 37.77 | cm | [facility] | | + + + + + + | MR max jose | 609.5 | cm/s | [facility] | | + + + + + + | AV peak | 9.35 | mmHg | [facility] | | | gradient | | | | | + + + + + + | TV peak | 0.99 | mmHg | [facility] | | | gradient | | | | | + + + + + + | PV mean | 1.85 | mmHg | [facility] | | | gradient | | | | | + + + + + + | MV VTI | 203.71 | cm | [facility] | | + + + + + + | LA Volume | 57 | mL/m2 | [facility] | | | Index | | | | | + + + + + + | AV LVOT | 5.76 | mmHg | [facility] | | | Peak | | | | | | Gradient | | | | | + + + + + + | AV LVOT | 2.78 | mmHg | [facility] | | | Mean | | | | | | Gradient | | | | | + + + + + + | TR Peak | 39 | mmHg | [facility] | | | Gradient | | | | | + + + + + + | RV Free | 14.19 | cm/s | [facility] | | | Wall Peak | | | | | | S' | | | | | + + + + + + | TR Velocity | 311.16 | cm/s | [facility] | | + + + + + + | PI Peak | 97.42 | cm/s | [facility] | | | Velocity | | | | | + + + + + + | RV | 3.68 | cm | [facility] | | | Diastolic | | | | | | Basal | | | | | | Diameter | | | | | + + + + + + | LV | 73 | % | [facility] | | | Whitt's | | | | | | Biplane EF | | | | | + + + + + + | LV ED | 59.77 | ml | [facility] | | | Volume | | | | | | (Whitt's) | | | | | + + + + + + | LV ED | 37 | ml/m2 | [facility] | | | Volume | | | | | | Index | | | | | + + + + + + | LV ES | 15.95 | ml | [facility] | | | Volume | | | | | + + + + + + | LVOT Mean | 77.55 | cm/s | [facility] | | | Velocity | | | | | + + + + + + | RVSP | 42 | mmHg | [facility] | | | Estimated | | | | | + + + + + + | MV | 161.76 | msec | [facility] | | | Deceleratio | | | | | | n Time | | | | | + + + + + + | MV E/A | 1.36 | | [facility] | | | Ratio | | | | | + + + + + + | MV Peak | 86.33 | cm/s | [facility] | | | A-Wave | | | | | + + + + + + | MV Peak | 117.37 | cm/s | [facility] | | | E-Wave | | | | | + + + + + + | TV | 266.09 | msec | [facility] | | | Deceleratio | | | | | | n Time | | | | | + + + + + + | TV Peak | 49.01 | cm/s | [facility] | | | A-Wave | | | | | + + + + + + | TV Peak | 49.72 | cm/s | [facility] | | | E-Wave | | | | | + + + + + + | PV Mean | 62.58 | cm/s | [facility] | | | Velocity | | | | | + + + + + + | AV | 1,376.81 | msec | [facility] | | | Deceleratio | | | | | | n Time | | | | | + + + + + + | AV Mean | 105.86 | cm/s | [facility] | | | Velocity | | | | | + + + + + + | RA Area | 19.28 | cm2 | [facility] | | + + + + + + | LA/Aorta | 1.41 | | [facility] | | | Ratio | | | | | + + + + + + | LA Major | 0.3777 | cm | [facility] | | + + + + + + | LV ES | 10 | ml/m2 | [facility] | | | Volume | | | | | | Index | | | | | + + + + + + | Cardiac | 6.74 | l/min | [facility] | | | Output | | | | | + + + + + + | Cardiac | 4.16 | l/min/m2 | [facility] | | | Index | | | | | + + + + + + | Vitals | 76 | | [facility] | | | Heart Rate | | | | | | Rest | | | | | + + + + + + | Vitals BP | 141 | | [facility] | | | Systolic | | | | | + + + + + + | Vitals BP | 76 | | [facility] | | | Diastolic | | | | | + + + + + + | Vitals | 155.0 | | [facility] | | | Height | | | | | + + + + + + | Vitals | 63.00 | | [facility] | | | Weight | | | | | + + + + + + | Aortic Root | 3.16 | cm | [facility] | | | Diameter | | | | | + + + + + + | IVS | 0.89 | cm | [facility] | | | Diastolic | | | | | | Thickness | | | | | | MM | | | | | + + + + + + | LVPW | 0.91 | cm | [facility] | | | Diastolic | | | | | | Thickness | | | | | | MM | | | | | + + + + + + | IVS | 1.02 | cm | [facility] | | | Systolic | | | | | | Thickness | | | | | | MM | | | | | + + + + + + | LV Systolic | 3.17 | cm | [facility] | | | Diameter | | | | | | MM | | | | | + + + + + + | LVPW | 1.14 | cm | [facility] | | | Systolic | | | | | | Thickness | | | | | | MM | | | | | + + + + + + | AV Cusp | 1.84 | cm | [facility] | | | Seperation | | | | | | MM | | | | | + + + + + + | LA Systolic | 4.46 | cm | [facility] | | | Diameter | | | | | | MM | | | | | + + + + + + | TAPSE | 3.22 | cm | [facility] | | + + + + + + + + | Specimen | + + | | + + + + + | Narrative | Performed At | + + + | 1. Sinus | [facility] | | rhythm2. And normal left ventricular systolic function. Ejection | | | fraction estimated around 65 to 70%3. Mitral valve is thickened and | | | calcified. Specifically the posterior leaflet appears to be | | | significantly thickened and might be related to prior vegetation. | | | There is mild bileaflet prolapse. There is moderate mitral | | | regurgitation4. Biatrial dilatation5. Mild tricuspid regurgitation | | | with PA pressure estimated to be around 40-45 mmHg | | |5. Mild tricuspid regurgitation with PA pressure estimated to be around | | |40-45 mmHg | | + + + + +---------+ + + | Performing | Address | City/State/Zipcode | Phone Number | | Organization | | | | + +---------+ + + | [facility] | | | | + +---------+ + + Troponin I (08/04/2019 5:31 AM PDT) + + + + + + | Component | Value | Ref Range | Performed | Pathologist | | | | | At | Signature | + + + + + + | Troponin I | 0.006Comment: 0.04 | 0.00 - 0.04 | [facility] | | | | ng/mL or less | ng/mL | LABORATORY | | | | Negative, repeat | | | | | | testing in four to six | | | | | | hour ifclinically | | | | | | indicted0.05 to 0.77 | | | | | | ng/mL | | | | | | Suspicious for | | | | | | myocardial injury. | | | | | | Serial measurementsmay | | | | | | be necessary to confirm | | | | | | or exclude the diagnosis | | | | | | of acute | | | | | | coronarysyndrome. Repeat | | | | | | testing in four to six | | | | | | hours if indicated.0.78 | | | | | | or greater ng/mL | | | | | | Consistent with | | | | | | myocardial injury. | | | | | | Clinical andlaboratory | | | | | | correlation recommended. | | | | | | Testing performed at | | | | | | [facility] [facility] [address] | | | | | | [facility];[place] [address] | | | | + + + + + + + + | Specimen | + + | | + + + + + + + | Performing | Address | City/State/Zipcode | Phone Number | | Organization | | | | + + + + + | [facility] | [address] | [place] [address] | [phone] | + + + + + CK-MB (08/04/2019 5:31 AM PDT) + + + + + + | Component | Value | Ref Range | Performed | Pathologist | | | | | At | Signature | + + + + + + | CK-MB | 3.7 (H) | 0.5 - 3.6 ng/mL | [facility] | | | | | | LABORATORY | | + + + + + + | CK Index | UNABLE TO | | ALEX | | | | CALCULATEComment: | | LABORATORY | | | | Testing performed at | | | | | | [facility];[address];[place] [address] | | | | + + + + + + + + | Specimen | + + | | + + + + + + + | Performing | Address | City/State/Zipcode | Phone Number | | Organization | | | | + + + + + | [facility] | [address] | [place] [address] | [phone] | + + + + + Magnesium (08/04/2019 5:31 AM PDT) + + + + + + | Component | Value | Ref Range | Performed | Pathologist | | | | | At | Signature | + + + + + + | Magnesium | 1.8Comment: Testing | 1.7 - 2.4 mg/dL | [facility] | | | | performed at [facility];[address] | | LABORAT[address] | | | [address];[place], [place] | | | | | | [address] | | | | + + + + + + + + | Specimen | + + | Blood | + + + + + + + | Performing | Address | City/State/Zipcode | Phone Number | | Organization | | | | + + + + + | [facility] | [address] | [place] [address] | [phone] | + + + + + Comprehensive Metabolic Panel (08/04/2019 5:31 AM PDT) + + + + + + | Component | Value | Ref Range | Performed | Pathologist | | | | | At | Signature | + + + + + + | Na | 131 (L) | 135 - 145 | [facility] | | | | | mmol/L | LABORATORY | | + + + + + + | K | 3.6 | 3.5 - 4.9 | [facility] | | | | | mmol/L | LABORATORY | | + + + + + + | Cl | 99 | 99 - 109 mmol/L | [facility] | | | | | | LABORATORY | | + + + + + + | CO2 | 24 | 23 - 32 mmol/L | [facility] | | | | | | LABORATORY | | + + + + + + | Anion Gap | 12 | 5 - 20 mmol/L | [facility] | | | | | | LABORATORY | | + + + + + + | Glucose | 121 (H) | 65 - 99 mg/dL | [facility] | | | | | | LABORATORY | | + + + + + + | BUN | 17 | 8 - 25 mg/dL | [facility] | | | | | | LABORATORY | | + + + + + + | Creatinine | 0.70 | 0.50 - 1.00 | [facility] | | | | | mg/dL | LABORATORY | | + + + + + + | BUN/Creatin | 24 | | [facility] | | | ine Ratio | | | LABORATORY | | + + + + + + | Calcium | 10.0 | 8.5 - 10.5 | [facility] | | | | | mg/dL | LABORATORY | | + + + + + + | Protein, | 7.5 | 6.3 - 8.2 g/dL | [facility] | | | Total | | | LABORATORY | | + + + + + + | Albumin | 3.8 | 3.3 - 4.8 g/dL | [facility] | | | | | | LABORATORY | | + + + + + + | Globulin | 3.7 | 1.3 - 4.9 g/dL | [facility] | | | | | | LABORATORY | | + + + + + + | A/G Ratio | 1.0 | 1.0 - 2.4 | [facility] | | | | | | LABORATORY | | + + + + + + | BILIRUBIN, | 0.9 | 0.1 - 1.5 mg/dL | [facility] | | | TOTAL | | | LABORATORY | | + + + + + + | ALK PHOS | 66 | 35 - 115 U/L | [facility] | | | | | | LABORATORY | | + + + + + + | AST | 73 (H) | 10 - 45 U/L | [facility] | | | | | | LABORATORY | | + + + + + + | ALT | 102 (H) | 10 - 65 U/L | [facility] | | | | | | LABORATORY | | + + + + + + | Estimated | >60Comment: GFR <60: | >60 | [facility] | | | GFR | CHRONIC KIDNEY DISEASE, | mL/min/1.73m2 | LABORATORY | | | | IF FOUND OVER A 3 MONTH | | | | | | PERIOD.GFR <15: KIDNEY | | | | | | FAILURE.FOR | | | | | | AMERICANS, MULTIPLY THE | | | | | | CALCULATED GFR BY | | | | | | 1.210.This eGFR is | | | | | | calculated using the | | | | | | MDRD IDMS traceable | | | | | | equation.Testing | | | | | | performed at [facility], [address] | | | | | [facility], | | | | | | [place] [address] | | | | + + + + + + + + | Specimen | + + | Blood | + + + + + + + | Performing | Address | City/State/Zipcode | Phone Number | | Organization | | | | + + + + + | [facility] | [address] | [place] [address] | [phone] | + + + + + CBC with Differential (08/04/2019 5:31 AM PDT) + + + + + + | Component | Value | Ref Range | Performed | Pathologist | | | | | At | Signature | + + + + + + | WBC | 8.43 | 3.80 - 11.00 | [facility] | | | | | K/uL | LABORATORY | | + + + + + + | Red Blood | 3.74 | 3.70 - 5.10 | [facility] | | | Cells | | M/uL | LABORATORY | | + + + + + + | Hemoglobin | 10.7 (L) | 11.3 - 15.5 | [facility] | | | | | g/dL | LABORATORY | | + + + + + + | Hematocrit | 31.9 (L) | 34.0 - 46.0 % | [facility] | | | | | | LABORATORY | | + + + + + + | MCV | 85.3 | 80.0 - 100.0 fl | [facility] | | | | | | LABORATORY | | + + + + + + | MCH | 28.6 | 27.0 - 34.0 pg | [facility] | | | | | | LABORATORY | | + + + + + + | MCHC | 33.5 | 32.0 - 35.5 | [facility] | | | | | g/dL | LABORATORY | | + + + + + + | RDW-SD | 40.8 | 37 - 53 fl | [facility] | | | | | | LABORATORY | | + + + + + + | Platelet | 260 | 150 - 400 K/uL | [facility] | | | Count | | | LABORATORY | | + + + + + + | MPV | 9.9Comment: NO NORMAL | fl | [facility] | | | | RANGE ESTABLISHED | | LABORATORY | | + + + + + + | Diff Type | AUTOMATED | | [facility] | | | | | | LABORATORY | | + + + + + + | % nRBC | 0.0 | 0 /100WBC | [facility] | | | | | | LABORATORY | | + + + + + + | % | 72.50 | % | [facility] | | | Neutrophils | | | LABORATORY | | + + + + + + | IMMATURE | 0.20 | % | [facility] | | | GRANULOCYTE | | | LABORATORY | | + + + + + + | % | 20.30 | % | [facility] | | | Lymphocytes | | | LABORATORY | | + + + + + + | Monocyte % | 6.50 | % | [facility] | | | | | | LABORATORY | | + + + + + + | Eosinophils | 0.40 | % | [facility] | | | % | | | LABORATORY | | + + + + + + | Basophils % | 0.10 | % | [facility] | | | | | | LABORATORY | | + + + + + + | Neutrophils | 6.11 | 1.90 - 7.40 | [facility] | | | , Absolute | | K/uL | LABORATORY | | + + + + + + | IMMATURE | 0.02Comment: NOTE NEW | 0.00 - 0.07 | [facility] | | | GRANS AB | REFERENCE RANGE | K/uL | LABORATORY | | + + + + + + | Absolute | 1.71 | 1.00 - 3.90 | [facility] | | | Lymphocytes | | K/uL | LABORATORY | | + + + + + + | Absolute | 0.55 | 0.00 - 0.80 | [facility] | | | Monocytes | | K/uL | LABORATORY | | + + + + + + | Eosinophils | 0.03 | 0.00 - 0.50 | [facility] | | | , Absolute | | K/uL | LABORATORY | | + + + + + + | Basophils, | 0.01Comment: Testing | 0.00 - 0.10 | [facility] | | | Absolute | performed at [facility], [address] | K/uL | LABORATORY | | | | [address], | | | | | | [place] [address] | | | | + + + + + + + + | Specimen | + + | Blood | + + + + + + + | Performing | Address | City/State/Zipcode | Phone Number | | Organization | | | | + + + + + | [facility] | [address] | [place] [address] | [phone] | + + + + + ECG 12 lead (08/04/2019 4:25 AM PDT) + + + + + + | Component | Value | Ref Range | Performed | Pathologist | | | | | At | Signature | + + + + + + | VENTRICULAR | 63 | BPM | [facility] | | | RATE EKG | | | | | + + + + + + | ATRIAL RATE | 63 | BPM | [facility] | | + + + + + + | P-R | 104 | ms | [facility] | | | INTERVAL | | | | | + + + + + + | QRS | 126 | ms | [facility] | | | DURATION | | | | | + + + + + + | Q-T | 466 | ms | [facility] | | | INTERVAL | | | | | + + + + + + | Q-T | 476 | ms | [facility] | | | INTERVAL | | | | | | (CORRECTED) | | | | | + + + + + + | P WAVE AXIS | 56 | degrees | [facility] | | + + + + + + | QRS AXIS | 59 | degrees | [facility] | | + + + + + + | T AXIS | 4 | degrees | [facility] | | + + + + + + | INTERPRETAT | Sinus rhythm with short | | [facility] | | | ION TEXT | PRRight bundle branch | | | | | | blockAbnormal | | | | | | ECGConfirmed by | | | | | | ENRRIQUE BALTAZAR MD | | | | | | ([id number]) on 08/04/2019 | | | | | | 11:01:29 PM | | | | + + + + + + + + | Specimen | + + | | + + + + + | Narrative | Performed At | + + + | | | + + + + +---------+ + + | Performing | Address | City/State/Zipcode | Phone Number | | Organization | | | | + +---------+ + + | [facility] | | | | + +---------+ + + Hemoglobin A1C (08/03/2019 11:18 PM PDT) + + + + + + | Component | Value | Ref Range | Performed | Pathologist | | | | | At | Signature | + + + + + + | Hemoglobin | 5.9 (H)Comment: | 4.8 - 5.6 % | [facility] | | | A1c | Prediabetes: 5.7 - | | LABORATORY | | | | 6.4 Diabetes: | | | | | | >6.4 | | | | | | Glycemic control for | | | | | | adults with diabetes: | | | | | | <7.0Testing performed at | | | | | | [facility], [address], | | | | | | [address], [place] | | | | | | [address] | | | | + + + + + + + + | Specimen | + + | Blood | + + + + + + + | Performing | Address | City/State/Zipcode | Phone Number | | Organization | | | | + + + + + | [facility] | [address] | [place] [address] | [phone] | + + + + + Lipid Panel (08/03/2019 11:18 PM PDT) + + + + + + | Component | Value | Ref Range | Performed | Pathologist | | | | | At | Signature | + + + + + + | Cholesterol | 168 | <200 mg/dL | [facility] | | | | | | LABORATORY | | + + + + + + | Triglycerid | 54 | <150 mg/dL | [facility] | | | es | | | LABORATORY | | + + + + + + | HDL | 82 | >40 mg/dL | [facility] | | | | | | LABORATORY | | + + + + + + | LDL, | 75Comment: Testing | <100 mg/dL | [facility] | | | Calculated | performed at [facility], [address] | | LABORATORY | | | | [address], | | | | | | [place] [address] | | | | + + + + + + + + | Specimen | + + | Blood | + + + + + + + | Performing | Address | City/State/Zipcode | Phone Number | | Organization | | | | + + + + + | [facility] | [address] | [place] [address] | [phone] | + + + + + XR Chest 2 Vws (08/03/2019 7:47 PM PDT) + + | Specimen | + + | | + + + + + | Impressions | Performed At | + + + | Negative chest. Signed by: Tiff Morrison, Justino Umanzor | [facility] | | Date/Time: 08/03/2019 8:01 PM | | + + + + + + | Narrative | Performed At | + + + | CHEST TWO VIEWS CLINICAL INFORMATION: Chest pain | [facility] | | COMPARISON: XR CHEST 1 VIEW (07/14/2006); FINDINGS: Heart, lungs | | | and vessels normal. No pneumothorax, pleural effusion or adenopathy. | | | No significant bone abnormality. | | + + + + + | Procedure Note | + + | Francisco Javier, Rad Results In - 08/03/2019 8:05 PM PDT | | CHEST TWO VIEWS | | | | CLINICAL INFORMATION: | | Chest pain | | | | COMPARISON: | | XR CHEST 1 VIEW (07/14/2006); | | | | FINDINGS: | | Heart, lungs and vessels normal. No pneumothorax, pleural effusion or | | adenopathy. No significant bone abnormality. | | | | IMPRESSION: | | Negative chest. | | | | | | | | Signed by: Tiff Morrison Steven | | Sign Date/Time: 08/03/2019 8:01 PM | + + + +---------+ + + | Performing | Address | City/State/Zipcode | Phone Number | | Organization | | | | + +---------+ + + | [facility] | | | | + +---------+ + + Troponin I (08/03/2019 7:22 PM PDT) + + + + + + | Component | Value | Ref Range | Performed | Pathologist | | | | | At | Signature | + + + + + + | Troponin I | 0.007Comment: 0.04 | 0.00 - 0.04 | [facility] | | | | ng/mL or less | ng/mL | LABORATORY | | | | Negative, repeat | | | | | | testing in four to six | | | | | | hour ifclinically | | | | | | indicted0.05 to 0.77 | | | | | | ng/mL | | | | | | Suspicious for | | | | | | myocardial injury. | | | | | | Serial measurementsmay | | | | | | be necessary to confirm | | | | | | or exclude the diagnosis | | | | | | of acute | | | | | | coronarysyndrome. Repeat | | | | | | testing in four to six | | | | | | hours if indicated.0.78 | | | | | | or greater ng/mL | | | | | | Consistent with | | | | | | myocardial injury. | | | | | | Clinical andlaboratory | | | | | | correlation recommended. | | | | | | Testing performed at | | | | | | [facility] | | | | | | [facility];[place] [address] | | | | + + + + + + + + | Specimen | + + | Blood | + + + + + + + | Performing | Address | City/State/Zipcode | Phone Number | | Organization | | | | + + + + + | [facility] | [address] | [place] [address] | [phone] | + + + + + Comprehensive Metabolic Panel (08/03/2019 7:22 PM PDT) + + + + + + | Component | Value | Ref Range | Performed | Pathologist | | | | | At | Signature | + + + + + + | Na | 133 (L) | 135 - 145 | [facility] | | | | | mmol/L | LABORATORY | | + + + + + + | K | 3.9 | 3.5 - 4.9 | [facility] | | | | | mmol/L | LABORATORY | | + + + + + + | Cl | 99 | 99 - 109 mmol/L | [facility] | | | | | | LABORATORY | | + + + + + + | CO2 | 24 | 23 - 32 mmol/L | [facility] | | | | | | LABORATORY | | + + + + + + | Anion Gap | 14 | 5 - 20 mmol/L | [facility] | | | | | | LABORATORY | | + + + + + + | Glucose | 121 (H) | 65 - 99 mg/dL | [facility] | | | | | | LABORATORY | | + + + + + + | BUN | 20 | 8 - 25 mg/dL | [facility] | | | | | | LABORATORY | | + + + + + + | Creatinine | 0.80 | 0.50 - 1.00 | [facility] | | | | | mg/dL | LABORATORY | | + + + + + + | BUN/Creatin | 25 | | [facility] | | | ine Ratio | | | LABORATORY | | + + + + + + | Calcium | 9.9 | 8.5 - 10.5 | [facility] | | | | | mg/dL | LABORATORY | | + + + + + + | Protein, | 7.3 | 6.3 - 8.2 g/dL | [facility] | | | Total | | | LABORATORY | | + + + + + + | Albumin | 4.5 | 3.3 - 4.8 g/dL | [facility] | | | | | | LABORATORY | | + + + + + + | Globulin | 2.8 | 1.3 - 4.9 g/dL | [facility] | | | | | | LABORATORY | | + + + + + + | A/G Ratio | 1.6 | 1.0 - 2.4 | [facility] | | | | | | LABORATORY | | + + + + + + | BILIRUBIN, | 0.8 | 0.1 - 1.5 mg/dL | [facility] | | | TOTAL | | | LABORATORY | | + + + + + + | ALK PHOS | 74 | 35 - 115 U/L | [facility] | | | | | | LABORATORY | | + + + + + + | AST | 122 (H) | 10 - 45 U/L | [facility] | | | | | | LABORATORY | | + + + + + + | ALT | 109 (H) | 10 - 65 U/L | [facility] | | | | | | LABORATORY | | + + + + + + | Estimated | >60Comment: GFR <60: | >60 | [facility] | | | GFR | CHRONIC KIDNEY DISEASE, | mL/min/1.73m2 | LABORATORY | | | | IF FOUND OVER A 3 MONTH | | | | | | PERIOD.GFR <15: KIDNEY | | | | | | FAILURE.FOR | | | | | | AMERICANS, MULTIPLY THE | | | | | | CALCULATED GFR BY | | | | | | 1.210.This eGFR is | | | | | | calculated using the | | | | | | MDRD IDMS traceable | | | | | | equation.Testing | | | | | | performed at [facility];[address] | | | | | [address];[place] | | | | | | [address] | | | | + + + + + + + + | Specimen | + + | Blood | + + + + + + + | Performing | Address | City/State/Zipcode | Phone Number | | Organization | | | | + + + + + | [facility] | [address] | [place] [address] | [phone] | + + + + + CBC with Differential (08/03/2019 7:22 PM PDT) + + + + + + | Component | Value | Ref Range | Performed | Pathologist | | | | | At | Signature | + + + + + + | WBC | 9.93 | 3.80 - 11.00 | [facility] | | | | | K/uL | LABORATORY | | + + + + + + | Red Blood | 3.93 | 3.70 - 5.10 | [facility] | | | Cells | | M/uL | LABORATORY | | + + + + + + | Hemoglobin | 11.5 | 11.3 - 15.5 | [facility] | | | | | g/dL | LABORATORY | | + + + + + + | Hematocrit | 34.2 | 34.0 - 46.0 % | [facility] | | | | | | LABORATORY | | + + + + + + | MCV | 87.0 | 80.0 - 100.0 fl | [facility] | | | | | | LABORATORY | | + + + + + + | MCH | 29.3 | 27.0 - 34.0 pg | [facility] | | | | | | LABORATORY | | + + + + + + | MCHC | 33.6 | 32.0 - 35.5 | [facility] | | | | | g/dL | LABORATORY | | + + + + + + | RDW-SD | 41.7 | 37 - 53 fl | [facility] | | | | | | LABORATORY | | + + + + + + | Platelet | 287 | 150 - 400 K/uL | [facility] | | | Count | | | LABORATORY | | + + + + + + | MPV | 9.8Comment: NO NORMAL | fl | [facility] | | | | RANGE ESTABLISHED | | LABORATORY | | + + + + + + | Diff Type | AUTOMATED | | [facility] | | | | | | LABORATORY | | + + + + + + | % nRBC | 0.0 | 0 /100WBC | [facility] | | | | | | LABORATORY | | + + + + + + | % | 75.30 | % | [facility] | | | Neutrophils | | | LABORATORY | | + + + + + + | IMMATURE | 0.30 | % | [facility] | | | GRANULOCYTE | | | LABORATORY | | + + + + + + | % | 17.00 | % | [facility] | | | Lymphocytes | | | LABORATORY | | + + + + + + | Monocyte % | 6.80 | % | [facility] | | | | | | LABORATORY | | + + + + + + | Eosinophils | 0.50 | % | [facility] | | | % | | | LABORATORY | | + + + + + + | Basophils % | 0.10 | % | [facility] | | | | | | LABORATORY | | + + + + + + | Neutrophils | 7.47 (H) | 1.90 - 7.40 | [facility] | | | , Absolute | | K/uL | LABORATORY | | + + + + + + | IMMATURE | 0.03Comment: NOTE NEW | 0.00 - 0.07 | [facility] | | | GRANS AB | REFERENCE RANGE | K/uL | LABORATORY | | + + + + + + | Absolute | 1.69 | 1.00 - 3.90 | [facility] | | | Lymphocytes | | K/uL | LABORATORY | | + + + + + + | Absolute | 0.68 | 0.00 - 0.80 | [facility] | | | Monocytes | | K/uL | LABORATORY | | + + + + + + | Eosinophils | 0.05 | 0.00 - 0.50 | [facility] | | | , Absolute | | K/uL | LABORATORY | | + + + + + + | Basophils, | 0.01Comment: Testing | 0.00 - 0.10 | [facility] | | | Absolute | performed at [facility];[address] | [address] | LABORATORY | | | | [address];[place], [place] | | | | | | [address] | | | | + + + + + + + + | Specimen | + + | Blood | + + + + + + + | Performing | Address | City/State/Zipcode | Phone Number | | Organization | | | | + + + + + | [facility] | [address] | [place] [address] | [phone] | + + + + + ECG 12 lead (08/03/2019 6:50 PM PDT) + + + + + + | Component | Value | Ref Range | Performed | Pathologist | | | | | At | Signature | + + + + + + | VENTRICULAR | 66 | BPM | [facility] | | | RATE EKG | | | | | + + + + + + | ATRIAL RATE | 66 | BPM | [facility] | | + + + + + + | P-R | 134 | ms | [facility] | | | INTERVAL | | | | | + + + + + + | QRS | 122 | ms | [facility] | | | DURATION | | | | | + + + + + + | Q-T | 440 | ms | [facility] | | | INTERVAL | | | | | + + + + + + | Q-T | 461 | ms | [facility] | | | INTERVAL | | | | | | (CORRECTED) | | | | | + + + + + + | P WAVE AXIS | 54 | degrees | [facility] | | + + + + + + | QRS AXIS | 88 | degrees | [facility] | | + + + + + + | T AXIS | 17 | degrees | [facility] | | + + + + + + | INTERPRETAT | Normal sinus rhythmRight | | [facility] | | | ION TEXT | bundle branch | | | | | | blockAbnormal ECGWhen | | | | | | compared with ECG of | | | | | | 09-AUG-2018 14:20,Right | | | | | | bundle branch block has | | | | | | replaced RSR' pattern in | | | | | | V1This ECG contains | | | | | | Unconfirmed | | | | | | Interpretation | | | | | | Statements. See ED | | | | | | Record for Physician | | | | | | Interpretation. | | | | | | Confirmed by MUSE READ | | | | | | ONLY, -COMPUTER ([id number]), | | | | | | medical editor CASSIA ESTRADA | | | | | | ([id number]) on 08/04/2019 | | | | | | 6:28:46 AM | | | | + + + + + + + + | Specimen | + + | | + + + + + | Narrative | Performed At | + + + | | | + + + + +---------+ + + | Performing | Address | City/State/Zipcode | Phone Number | | Organization | | | | + +---------+ + + | [facility] | | | | + +---------+ + + documented in this encounter Visit Diagnoses + + | Diagnosis | + + | Chest pain - Primary Chest pain, unspecified | + + | Chest pain in adult | + + | CAD in [place] artery Coronary atherosclerosis of [place] coronary artery | + + | Hypertension, unspecified type | + + | Hyperlipidemia Other and unspecified hyperlipidemia | + + documented in this encounter Administered Medications + +--------+ +--------+------+------+ | Medication Order | MAR | Action | Dose | Rate | Site | | | Action | Date | | | | + +--------+ +--------+------+------+ | acetaminophen (TYLENOL) tablet | Given | 08/04/19 | 650 mg | | | | 650 mg 650 mg, Oral, EVERY 4 | | 20 4:36 | | | | | HOURS PRN, Pain, or fever >= 38.6 | | AM PDT | | | | | C (101.5 F), Starting [facility] 08/03/19 | | | | | | | at 2221 | | | | | | + +--------+ +--------+------+------+ +---+---+ | | | +---+---+ + +-------+ +-------+---+---+ | aspirin EC tablet 81 mg 81 mg, | Given | 08/04/19 | 81 mg | | | | Oral, DAILY WITH BREAKFAST, | | 20 9:40 | | | | | First dose on Wed08/04/19 at 0800 | | AM PDT | | | | + +-------+ +-------+---+---+ +---+---+ | | | +---+---+ + +-------+ +--------+---+---+ | aspirin tablet 325 mg 325 mg, | Given | 08/03/19 | 325 mg | | | | Oral, ONCE, [facility] 08/03/19 at 1925, | | 20 7:40 | | | | | For 1 dose | | PM PDT | | | | + +-------+ +--------+---+---+ + +---+ | | | + +---+ | atenolol (TENORMIN) tablet 25 | | | mg 25 mg, Oral, 2 TIMES DAILY, | | | First dose (after last | | | modification) on Wed08/04/19 at | | | 0200, Please continue home dose | | | schedule, | | + +---+ | | | + +---+ + +-------+ + +---+---+ | calcium carbonate (TUMS) | Given | 08/04/19 | 1,000 mg | | | | chewable tablet 1,000 mg 1,000 | | 20 12:37 | | | | | mg, Oral, EVERY 4 HOURS PRN, | | AM PDT | | | | | Indigestion, Heartburn, Starting | | | | | | | Wed08/04/19 at 0031 | | | | | | + +-------+ + +---+---+ +---+---+ | | | +---+---+ + +-------+ +--------+---+ + | heparin 5,000 units/mL | Given | 08/04/19 | 5,000 | | Abdomen- | | injection 5,000 Units 5,000 | | 20 9:41 | Units | | RLQ | | Units, Subcutaneous, EVERY 12 | | AM PDT | | | | | HOURS (2 times per day), First | | | | | | | dose on [facility] 08/03/19 at 2225 | | | | | | + +-------+ +--------+---+ + +-------+ +--------+---+ + | Given | 08/03/19 | 5,000 | | Abdomen- | | | 20 11:18 | Units | | LLQ | | | PM PDT | | | | +-------+ +--------+---+ + +---+---+ | | | +---+---+ + +-------+ +-------+---+---+ | isosorbide mononitrate (IMDUR) | Given | 08/04/19 | 15 mg | | | | ER tablet 15 mg 15 mg, Oral, | | 20 2:22 | | | | | DAILY, First dose on Wed08/04/19 | | PM PDT | | | | | at 0900 | | | | | | + +-------+ +-------+---+---+ +---+---+ | | | +---+---+ + +-------+ +--------+---+---+ | losartan (COZAAR) tablet 100 mg | Given | 08/04/19 | 100 mg | | | | 100 mg, Oral, DAILY, First dose | | 20 9:40 | | | | | on Wed08/04/19 at 0900 | | AM PDT | | | | + +-------+ +--------+---+---+ +---+---+ | | | +---+---+ + +-------+ +--------+---+---+ | nitroglycerin (NITROSTAT) SL | Given | 08/03/19 | 0.4 mg | | | | tablet 0.4 mg 0.4 mg, | | 20 7:40 | | | | | Sublingual, EVERY 5 MIN PRN, | | PM PDT | | | | | Chest pain, chest pain | | | | | | | resolution, Starting [facility] 08/03/19 | | | | | | | at 191, Maximum of 3 doses in 15 | | | | | | | minutes., | | | | | | + +-------+ +--------+---+---+ +---+---+ | | | +---+---+ + +---------+ +---------+---------+---+ | nitroglycerin in dextrose 200 | New Bag | 08/03/19 | 10 | 3 mL/hr | | | mcg/mL infusion 0-200 mcg/min | | 20 8:45 | mcg/min | | | | (0-60 mL/hr), at 0-60 mL/hr, | | PM PDT | | | | | Intravenous, CONTINUOUS, Starting | | | | | | | [facility] 08/03/19 at 2004, Titration | | | | | | | Instruction: See below, Goal: | | | | | | | Reduction of chest pain, Initial | | | | | | | dose: 10 mcg/min, Increase rate | | | | | | | by: 5 mcg/min every 5 minutes | | | | | | | until 20 mcg/min achieved, then | | | | | | | increase by 10 mcg/min every 5 | | | | | | | minutes., Decrease rate by: 10 | | | | | | | mcg/min every 5 minutes., *: | | | | | | | Titrate drug per order as | | | | | | | tolerated. Titration may vary | | | | | | | based on the patient | | | | | | | | | | | | | | s critical condition. | | | | | | + +---------+ +---------+---------+---+ +---+---+ | | | +---+---+ + + + +---------+---------+---+ | nitroglycerin in dextrose 200 | Continue | 08/03/19 | 10 | 3 mL/hr | | | mcg/mL infusion 0-200 mcg/min | d Bag | 20 10:48 | mcg/min | | | | (0-60 mL/hr), at 0-60 mL/hr, | | PM PDT | | | | | Intravenous, CONTINUOUS, Starting | | | | | | | [facility] 08/03/19 at 2225, Titration | | | | | | | Instruction: See below, Goal: | | | | | | | Reduction of chest pain, Initial | | | | | | | dose: 5 mcg/min, Increase rate | | | | | | | by: 5 mcg/min every 5 minutes | | | | | | | until 20 mcg/min achieved, then | | | | | | | increase by 10 mcg/min every 5 | | | | | | | minutes., Decrease rate by: 10 | | | | | | | mcg/min every 5 minutes., *: | | | | | | | Titrate drug per order as | | | | | | | tolerated. Titration may vary | | | | | | | based on the patient | | | | | | | | | | | | | | s critical condition. | | | | | | + + + +---------+---------+---+ +---+---+ | | | +---+---+ + +-------+ + +---+---+ | technetium TC-99M sestamibi | Given | 08/04/19 | 11.7 | | | | (CARDIOLITE) injection 10 | | 20 11:17 | millicur | | | | millicurie 10 millicurie, | | AM PDT | ies | | | | Intravenous, ONCE PRN, Other, | | | | | | | Starting Wed08/04/19 at 1237, For | | | | | | | 1 dose, Nuclear Medicine | | | | | | + +-------+ + +---+---+ +---+---+ | | | +---+---+ + +-------+ + +---+---+ | technetium TC-99M sestamibi | Given | 08/04/19 | 32 | | | | (CARDIOLITE) injection 30 | | 20 2:17 | millicur | | | | millicurie 30 millicurie, | | PM PDT | ies | | | | Intravenous, ONCE PRN, Other, | | | | | | | Starting 08/04/19 at 1237, For | | | | | | | 1 dose, Nuclear Medicine | | | | | | + +-------+ + +---+---+ +---+---+ | | | +---+---+ documented in this encounter
--- OUTSIDE RECORDS SUMMARY | ~2019-11-09 | XMS | Encounter Summary ---
Demographics + + + | Address | [address] | | | [place] [address] | + + + | Home Phone | | + + + | Preferred Language | Unknown | + + + | Marital Status | | + + + | Yarsanism Affiliation | 1073 | + + + | Race | White | + + + | Ethnic Group | Not or | + + + Author + + + | Author | [facility] | | | and [place] | + + + | Organization | [facility] | | | and [place] | + + + | Address | Unknown | + + + | Phone | Unavailable | + + + Support + + + + + | Name | Relationship | Address | Phone | + + + + + | Kristyndamaris Noble | ECON | [address] | | | | | [place], [place] | | | | | [address] | | + + + + + | Georgie Noble | ECON | Unknown | | + + + + + Care Team Providers + +------+ + | Care Senior Internet Sales Consultant Name | Role | Phone | + +------+ + | Symone Oscar MD | PCP | | + +------+ + Encounter Details +--------+ + + + + | Date | Type | Department | Care Team | Description | +--------+ + + + + | 08/09/ | Orders Only | [facility] | Ac Rahman MD | | | 2019 | | CARDIOLOGY [place] | [address] | | | | | [address] | [place] [address] | | | | [address] | [phone] | | | | | [place], [place] | | | | | | [address] | | | | | | [phone] | | | +--------+ + + + [...] | NM NUCLEAR STRESS | Routin | 08/09/2018 | | Results for this | | TEST (PHARMACOLOGIC | e | 2:41 PM | | procedure are in the | | - VASODILATOR) | | PDT | | results section. | + +--------+ + + + documented in this encounter Results [place] Nuclear Stress Test (Vasodilator) (08/09/2018 2:41 PM PDT) + + | Specimen | + + | | + + + + + | Impressions | Performed At | + + + | This is a low-risk stress test. Ac Rahman MD, [facility], | | | | | + + + + + + | Narrative | Performed At | + + + | [facility] [address], [address], [place], [place] | | | [phone] NUCLEAR LEXISCAN STRESS TEST TEST DATE: 08/09/2018 | | | NAME: Constance Noble : 1935 ORDERING | | | MD: Ac Rahman MD INDICATION FOR TEST: 83 year old female being | | | evaluated for coronary artery disease, Chest Pain RISK FACTORS: | | | hypertension, hyperlipidemia, family history PROCEDURE: 11.6 mCi | | | of 99m Tc Cardiolite was given intravenously for rest images. The | | | patient received 0.4 mg of Lexiscan given intravenously over 10 | | | seconds. At 00:35 seconds 32.9 mCi of 99m Tc Cardiolite was given | | | intravenously for stress images. Effective Dose Equivalent: 22.4 | | | mSv. REST DATA: HR: 57 bpm BP: 141/82. Resting EKG showed sinus | | | rhythm with right bundle branch block. STRESS DATA: Peak heart | | | rate 91 bpm, Peak BP: 152/81. Symptoms shortness of breath, | | | lightheaded, chest pressure, headache Stress EKG showed sinus rhythm | | | with right bundle branch block. EJECTION FRACTION: Rest EF: 73% | | | Stress EF: 77% IMAGIN. The quality of the study is adequate | | | with mild increased intestinal uptake. 2. SPECT images showed | | | normal perfusion pattern both at rest and during exercise. (SSS: 1 | | | SRS: 2 SDS: 0 TID: 0.95). 3. Gated SPECT images showed normal wall | | | motions. 4. Gated SPECT images showed wall thickening. 5. The RV | | | function appears normal. 6. Comparison with previous Nuclear stress | | | test from 05/2015 showed similar findings although today test is | | | Lexiscan and not exercise test. | | + + + + --+ | Procedure Note | + --+ | Dale Mcintyre Conversion - 10/20/2018 12:24 PM PDT [id number] | | [address] [place], [phone] NUCLEAR LEXISCAN STRESS TESTTEST DATE: | | 08/09/2018NAME: Wood Noble: 1935MRN: [id number] MD: Ac Rahman, | | INDICATION FOR TEST: 83 year old female being evaluated for coronary artery disease, | | Chest Pain RISK FACTORS: hypertension, hyperlipidemia, family history PROCEDURE: 11.6 | | mCi of 99m Tc Cardiolite was given intravenously for rest images. The patient received | | 0.4 mg of Lexiscan given intravenously over 10 seconds. At 00:35 seconds 32.9 mCi of 99m | | Tc Cardiolite was given intravenously for stress images. Effective Dose Equivalent: | | 22.4 mSv. REST DATA: HR: 57 bpm BP: 141/82. Resting EKG showed sinus rhythm with right | | bundle branch block. STRESS DATA: Peak heart rate 91 bpm, Peak BP: 152/81. Symptoms | | shortness of breath, lightheaded, chest pressure, headache Stress EKG showed sinus | | rhythm with right bundle branch block. EJECTION FRACTION: Rest EF: 73% Stress EF: 77% | | IMAGIN. The quality of the study is adequate with mild increased intestinal | | uptake.2. SPECT images showed normal perfusion pattern both at rest and during | | exercise. (SSS: 1 SRS: 2 SDS: 0 TID: 0.95).3. Gated SPECT images showed normal wall | | motions.4. Gated SPECT images showed wall thickening.5. The RV function appears | | normal.6. Comparison with previous Nuclear stress test from 05/2015 showed similar | | findings although today test is Lexiscan and not exercise test. IMPRESSION: This is a | | low-risk stress test. Ac Rahman MD, [facility], | |STRESS DATA: Peak heart rate 91 bpm, Peak BP: 152/81. Symptoms shortness of breath, lighthe aded, chest pressure, headache Stress EKG showed sinus rhythm with right bundle branch block . | | | |EJECTION FRACTION: Rest EF: 73% Stress EF: 77% | | | |IMAGING: | |1. The quality of the study is adequate with mild increased intestinal uptake. | |2. SPECT images showed normal perfusion pattern both at rest and during exercise. (SSS: 1 SRS: 2 SDS: 0 TID: 0.95). | |3. Gated SPECT images showed normal wall motions. | |4. Gated SPECT images showed wall thickening. | |5. The RV function appears normal. | |6. Comparison with previous Nuclear stress test from 05/2015 showed similar findings altho ugh today test is Lexiscan and not exercise test. | | | |IMPRESSION: | |This is a low-risk stress test. | | | | | |Ac Rahman MD, [facility], | | | | | + --+ documented in this encounter Visit Diagnoses Not on filedocumented in this encounter"
--- OUTSIDE RECORDS SUMMARY | ~2019-11-09 | XMS | Encounter Summary ---
Demographics + + + | Address | [address] | | | [place] [address] | + + + | Home Phone | | + + + | Preferred Language | Unknown | + + + | Marital Status | | + + + | Nondenominational Affiliation | 1073 | + + + | Race | White | + + + | Ethnic Group | Not or | + + + Author + + + | Author | [facility] | | | and [place] | + + + | Organization | [facility] | | | and [place] | + + + | Address | Unknown | + + + | Phone | Unavailable | + + + Support + + + + + | Name | Relationship | Address | Phone | + + + + + | Kristyndamaris Noble | ECON | [address] | | | | | [place], [place] | | | | | [address] | | + + + + + | Georgie Noble | ECON | Unknown | | + + + + + Care Team Providers + +------+ + | Care Esol Instructor Name | Role | Phone | + +------+ + | Symone Oscar MD | PCP | | + +------+ + Encounter Details +--------+ + + + + | Date | Type | Department | Care Team | Description | +--------+ + + + + | 08/23/ | Orders Only | [facility] | Ac Rahman MD | | | 2018 | | CARDIOLOGY [place] | [address] | | | | | [address] | [place] [address] | | | | | [place], [place] | [phone] | | | | | [address] | | | | | | [phone] | | | +--------+ + + + [...]
--- OUTSIDE RECORDS SUMMARY | ~2019-11-09 | XMS | Encounter Summary ---
Demographics + + + | Address | [address] | | | [place] [address] | + + + | Home Phone | | + + + | Preferred Language | Unknown | + + + | Marital Status | | + + + | Oriental Orthodox Affiliation | 1073 | + + + | Race | White | + + + | Ethnic Group | Not or | + + + Author + + + | Author | [facility] | | | and [place] | + + + | Organization | [facility] | | | and [place] | + + + | Address | Unknown | + + + | Phone | Unavailable | + + + Support + + + + + | Name | Relationship | Address | Phone | + + + + + | Kristyndamaris Noble | ECON | [address] | | | | | [place], [place] | | | | | [address] | | + + + + + | Georgie Noble | ECON | Unknown | | + + + + + Care Team Providers + +------+ + | Care Crib Attendant Name | Role | Phone | + +------+ + PCP | Unavailable | + +------+ + Encounter Details +--------+ + + + + | Date | Type | Department | Care Team | Description | +--------+ + + + + | 06/15/ | Hospital | [facility] | Ac Rahman MD | Unspecified Chest | | 2005 - | Encounter | [facility] | [address] | Pain | | | | CLINICAL DECISION | [place] [address] | | | 06/16/ | | [address] | [phone] | | | 2005 | | [place], [place] | | | | | | [address] | | | | | | [phone] | | | +--------+ + + + [...]
--- OUTSIDE RECORDS SUMMARY | ~2019-11-09 | XMS | Encounter Summary ---
Demographics + + + | Address | [address] | | | [place] [address] | + + + | Home Phone | | + + + | Preferred Language | Unknown | + + + | Marital Status | | + + + | Yarsanism Affiliation | 1073 | + + + | Race | White | + + + | Ethnic Group | Not or | + + + Author + + + | Author | [facility] | | | and [place] | + + + | Organization | [facility] | | | and [place] | + + + | Address | Unknown | + + + | Phone | Unavailable | + + + Support + + + + + | Name | Relationship | Address | Phone | + + + + + | Kristyndamaris Noble | ECON | [address] | | | | | [place], [place] | | | | | [address] | | + + + + + | Georgie Noble | ECON | Unknown | | + + + + + Care Team Providers + +------+ + | Care Director Medical Writing Name | Role | Phone | + +------+ + PCP | Unavailable | + +------+ + Encounter Details +--------+ + + + + | Date | Type | Department | Care Team | Description | +--------+ + + + + | 01/21/ | Hospital | [facility] | Joel Vargas MD | | | 1997 | Encounter | [facility] | [address] | | | | | GENERIC CONV DEPT | [place], [place] | | | | | [address] | [phone] | | | | | [place], [place] | | | | | | [address] | | | | | | [phone] | | | +--------+ + + + [...]
[~2019-11-09 17:52] MED LIST changes: +ATORVASTATIN CA10 MG PO
[2019-11-09] MEDS ORDERED: AMLODIPINE BESY10 MG PO (18:07)
[2019-11-09] MEDS ORDERED: ONDANSETRON ODT8 MG PO (19:30)
== END 2019-11-09 19:51 | disposition home or self-care (01) ==
LOC: ED 17:52
DX: R51 Headache (principal); I10 Essential (primary) hypertension; Z79.899 Other long term (current) drug therapy; Z79.82 Long term (current) use of aspirin
CPT/HCPCS: 70450; 99284-25

== ENCOUNTER 2020-05-08 12:03 | Emergency (ER) | payer MEDICARE, BC, OTHER ==
[~2020-05-08] VITALS: Ht 154.9 cm; Wt 63.5 kg
[~2020-05-08 12:03] MED LIST changes: +AMLODIPINE BESY10 MG PO; +ONDANSETRON ODT8 MG PO
[2020-05-08] MEDS ORDERED: FLONASE SENSIM5.9 ML NS (12:27)
--- NOTE | 2020-05-08 17:03 | EKG ---
[facility] [address] [place] [address] Signed Normal sinus rhythm Right bundle branch block Abnormal ECG When compared with ECG of 05-NOV-2016 07:01, Right bundle branch block is now present Confirmed by ROLDAN MCCAULEY MD ([id number]) on 05/08/2020 5:03:09 PM Electronically Signed By: ROLDAN MCCALUEY MD 05/08/20 1703 PATIENT NAME: CECYDMITRY Electrocardiogram DATE OF : 35 PHYSICIAN: ROLDAN MCCAULEY MD REPORT #: [id number] REPORT IS CONFIDENTIAL AND NOT TO BE RELEASED WITHOUT AUTHORIZATION
== END 2020-05-08 17:45 | disposition short-term general hospital (02) ==
LOC: ED 12:03
DX: I20.0 Unstable angina (principal); I10 Essential (primary) hypertension; Z79.899 Other long term (current) drug therapy; Z79.82 Long term (current) use of aspirin; Z20.822 Contact with and (suspected) exposure to COVID-19
CPT/HCPCS: 71045; 80053; 81001; 83735; 83880; 84484; 85025; 93005; 93010; 99285-25; C9803; U0003

== ENCOUNTER 2021-10-04 07:47 | Emergency (ER) | payer MEDICARE, BC, OTHER ==
[~2021-10-04] VITALS: Ht 154.9 cm; Wt 63.5 kg
--- NOTE | ~2021-10-04 | EKG ---
[facility] [address] [facility] [place], [place] [address] Draft EK completed, results pending confirmation PATIENT NAME: DMITRY SAM Electrocardiogram DATE OF : 35 PHYSICIAN: PRELIMINARY REPORT #: [id number] REPORT IS CONFIDENTIAL AND NOT TO BE RELEASED WITHOUT AUTHORIZATION
[~2021-10-04 07:47] MED LIST changes: +FLONASE SENSIM5.9 ML NS
[2021-10-04] MEDS ORDERED: ATORVASTATIN CA10 MG PO (08:01)
[2021-10-04] MEDS ORDERED: ESCITALOPRAM OX10 MG PO (08:02)
== END 2021-10-04 14:23 | disposition home or self-care (01) ==
LOC: ED 07:47
DX: R07.89 Other chest pain (principal); K44.9 Diaphragmatic hernia without obstruction or gangrene; I25.10 Atherosclerotic heart disease of native coronary artery without angina pectoris; R79.89 Other specified abnormal findings of blood chemistry; I10 Essential (primary) hypertension; Z20.822 Contact with and (suspected) exposure to COVID-19; Z95.5 Presence of coronary angioplasty implant and graft; Z79.899 Other long term (current) drug therapy; Z79.82 Long term (current) use of aspirin
CPT/HCPCS: 36415; 71045; 71260; 80053; 83690; 83880; 84484; 85025; 85379; 87502; 93005; 93010; C9803; J2405; U0003

== ENCOUNTER 2023-07-01 20:46 | Emergency (ER) | payer MEDICARE, BC ==
[~2023-07-01] VITALS: Ht 154.9 cm; Wt 62.0 kg
[~2023-07-01 20:46] MED LIST changes: +CARAFATE1 GM/10 ML PO; +ESCITALOPRAM OX10 MG PO; +PROTONIX40 MG PO
[2023-07-01 21:10] LABS: BASOPHILS 0.7 % (0-2); EOSINOPHILS 1.4 % (0-6); HEMATOCRIT 34.5 % (35.0-50.0); HEMOGLOBIN 11.6 g/dL (12.0-18.0); LYMPHOCYTES 33.1 % (24-44); MCHC 33.6 g/dl (30-36); MCV 89.3 fl (81-99); MONOCYTES 7.8 % (0-12); PLATELET COUNT 319 K/uL (140-440); RBC 3.86 M/ul (4.3-5.7); RDW 14.1 (10.5-15.0)
[2023-07-01] MEDS ORDERED: dilTIAZem HCL 25 MG/5 ML VIAL IV ONE (21:15)
[2023-07-01 21:20] LABS: INR 0.94 (0.80-1.30); PROTIME 11.9 Sec (11.2-14.2)
[2023-07-01 21:33] LABS: ALBUMIN 3.8 g/dL (3.4-5.0); ALBUMIN/GLOBULIN RATIO 1.03 (1.1-2.4); ANION GAP 17.3 (7-21); BILIRUBIN, TOTAL 0.5 ng/dL (0.2-1.0); BUN/CREATININE RATIO 28.39 (6.0-28.6); CALCIUM 8.9 mg/dL (8.5-10.1); CREATININE, SERUM 0.81 mg/dL (0.55-1.02); MAGNESIUM 1.9 mg/dL (1.8-2.4); POTASSIUM 4.3 mmol/L (3.5-5.1); PROTEIN, TOTAL 7.5 g/dL (6.4-8.2)
[2023-07-01] MEDS ORDERED: APIXABAN 5 MG TAB PO ONE (22:15)
[2023-07-01] MEDS ORDERED: dilTIAZem HCL 120 MG CAPCR PO ONE (23:15)
[2023-07-01] MEDS ORDERED: ELIQUIS5 MG PO (23:32)
[2023-07-01] MEDS ORDERED: DILTIAZEM 24HR120 MG PO (23:32)
[2023-07-01 23:48] VITALS: BP 144/78
[2023-07-04] MEDS ORDERED: CARTIA XT120 MG PO (08:13)
[2023-07-04] MEDS ORDERED: DILTIAZEM 24HR180 M1 PO (10:02)
--- NOTE | 2023-07-05 07:19 | EKG ---
[facility] [address] [place] [address] Signed Atrial fibrillation Right bundle branch block Abnormal ECG When compared with ECG of 13-APR-2023 15:53, Atrial fibrillation has replaced Sinus rhythm Nonspecific T wave abnormality, worse in Inferior leads Confirmed by Marcelo Chakraborty MD ([id number]) on 07/05/2023 7:19:16 AM Electronically Signed By: MARCELO CHAKRABORTY 07/05/23 0719 PATIENT NAME: CECYDMITRYPARISH PEREZ Electrocardiogram DATE OF : 35 PHYSICIAN: MARCELO CHAKRABORTY REPORT #: [id number] REPORT IS CONFIDENTIAL AND NOT TO BE RELEASED WITHOUT AUTHORIZATION
== END 2023-07-01 23:49 | disposition home or self-care (01) ==
LOC: ED 20:46
PROVIDERS: Family Medicine
DX: I48.91 Unspecified atrial fibrillation (principal); Z79.899 Other long term (current) drug therapy; Z79.82 Long term (current) use of aspirin
CPT/HCPCS: 36415; 71045; 71260; 80053; 83735; 83880; 84484; 85025; 85379; 85610; 93005; 93010; 99284-25; Q9967

== ENCOUNTER 2023-11-17 15:49 | Emergency (ER) | payer MEDICARE, BC ==
[~2023-11-17] VITALS: Ht 154.9 cm; Wt 57.7 kg
[~2023-11-17 15:49] MED LIST changes: +CARTIA XT120 MG PO; +DILTIAZEM 24HR120 MG PO; +DILTIAZEM 24HR180 M1 PO; +ELIQUIS5 MG PO
[2023-11-17 16:21] LABS: BASOPHILS 0.3 % (0-2); EOSINOPHILS 1.4 % (0-6); HEMATOCRIT 35.4 % (35.0-50.0); LYMPHOCYTES 29.7 % (24-44); MCH 29.7 (27-36); MCHC 33.9 g/dl (30-36); MCV 87.7 fl (81-99); MONOCYTES 9.4 % (0-12); NEUTROPHILS 59.2 % (39-80); PLATELET COUNT 275 K/uL (140-440); RBC 4.04 M/ul (4.3-5.7); RDW 14.5 (10.5-15.0)
[2023-11-17] MEDS ORDERED: METOPROLOL SUCC50 MG PO (16:29)
[2023-11-17] MEDS ORDERED: SUCRALFATE1 GM PO (16:30)
[2023-11-17 16:31] LABS: INR 1.04 (0.80-1.30); PROTIME 13.2 Sec (11.2-14.2)
[2023-11-17 16:33] LABS: PARTIAL THROMBOPLASTIN TIME 31.8 Sec (22.9-41.3)
[2023-11-17 16:39] LABS: ALBUMIN 3.3 g/dL (3.4-5.0); ALBUMIN/GLOBULIN RATIO 1.03 (1.1-2.4); ANION GAP 12.6 (7-21); BUN/CREATININE RATIO 21.79 (6.0-28.6); CALCIUM 8.9 mg/dL (8.5-10.1); CREATININE, SERUM 0.78 mg/dL (0.55-1.02); POTASSIUM 3.6 mmol/L (3.5-5.1); PROTEIN, TOTAL 6.5 g/dL (6.4-8.2)
[2023-11-17 17:15] LABS: AMPHETAMINES, URINE NEGATIVE (NEGATIVE); BARBITURATES, URINE NEGATIVE (NEGATIVE); BENZODIAZEPINE, URINE NEGATIVE (NEGATIVE); BUPRENORPHINE, URINE NEGATIVE (NEGATIVE); CANNABINOID, URINE NEGATIVE (NEGATIVE); COCAINE, URINE NEGATIVE (NEGATIVE); ECSTASY, URINE NEGATIVE (NEGATIVE); FENTANYL, URINE NEGATIVE (NEGATIVE); METHADONE, URINE NEGATIVE (NEGATIVE); OPIATES, URINE NEGATIVE (NEGATIVE); OXYCODONE, URINE NEGATIVE (NEGATIVE); PHENCYCLIDINE, URINE NEGATIVE (NEGATIVE)
[2023-11-17] MEDS ORDERED: hydrALAZINE HCL 20 MG/ML VIAL IV ONE (17:45)
[2023-11-17 17:55] VITALS: BP 173/97
--- NOTE | 2023-11-18 12:29 | EKG ---
[facility] [address] [facility] [place] [address] Signed Atrial fibrillation Right bundle branch block Abnormal ECG When compared with ECG of 11-JUL-2023 16:53, Vent. rate has decreased BY 43 BPM Minimal criteria for Inferior infarct are no longer present T wave inversion no longer evident in Inferior leads Confirmed by Shena Helm MD ([id number]) on 11/18/2023 12:29:32 PM Electronically Signed By: SHENA HELM DO 11/18/23 1229 PATIENT NAME: DMITRY SAM Electrocardiogram DATE OF : 35 PHYSICIAN: SHENA HELM DO REPORT #: [id number] REPORT IS CONFIDENTIAL AND NOT TO BE RELEASED WITHOUT AUTHORIZATION
== END 2023-11-17 17:55 | disposition home or self-care (01) ==
LOC: ED 15:49
PROVIDERS: Emergency Medicine
DX: G45.9 Transient cerebral ischemic attack, unspecified (principal); E86.0 Dehydration; I10 Essential (primary) hypertension; Z95.5 Presence of coronary angioplasty implant and graft; Z79.01 Long term (current) use of anticoagulants; Z79.899 Other long term (current) drug therapy; Z79.82 Long term (current) use of aspirin; Z88.8 Allergy status to other drugs, medicaments and biological substances; Z88.0 Allergy status to penicillin
CPT/HCPCS: 36415; 70450; 70496; 70498; 71045; 80053; 80307; 84484; 85025; 85610; 85730; 93005; 93010; 99285-25; J0360; Q9967